=== PATIENT | male | born 1985 | race Caucasian/White ===

== ENCOUNTER 2016-08-23 01:04 | Emergency (ER) | payer OTHER ==
--- NOTE | ~2016-08-23 | EKG ---
PATIENT: MAICO SALDIVAR UNIT #: [id number] Ventricular Rate: 88 BPM Atrial Rate: 88 BPM P-R Interval: 136 ms QRS Duration: 82 ms Q-T Interval: 366 ms QTC Calculation(Bezet): 442 ms P [place]: 43 degrees Calculated R [place]: 19 degrees Calculated T [place]: 81 degrees Diagnosis Line: Normal sinus rhythm Diagnosis Line: Abnormal ECG T wave abnormality, consider Diagnosis Line: anterolateral ischemia Diagnosis Line: No previous ECGs available Diagnosis Line: Confirmed by HUSAM GONZALEZ MD ([id number]) on 08/25/2016 Diagnosis Line: 10:25:01 AM INTERPRETING MD: CARLOS INGRAM
--- NOTE | ~2016-08-23 | CR72 ---
[facility] A Service of [facility] RADIOLOGY TEXT RESULTS PATIENT: MAICO SALDIVAR LOCATION: [facility] : 87 UNIT #: [id number] AGE: [address]: Dakotah Neville MD SEX: M ORDER DR: [id number] [facility] [address] [facility]. [place], [place] [address] [id number] MR#: [id number] Acc #: [id number] NAME: MAICO SALDIVAR : 1985 SEX: M STUDY DATE/TIME: 08/23/2016 02:11 UNIT: [facility] ROOM: STUDY DESCRIPTION: CR Chest Single View Portable Attending Physician: Dakotah Neville M.D. Ordering Physician: Joni Kinney M.D. Primary Care Physician: Jovi Griffin M.D. MEDICAL IMAGING REPORT This report is preliminary unless electronic signature is present EXAM Portable chest 08/23 021 INDICATIONS Chest pain, shortness of air that started tonight. FINDINGS AP portable chest is compared with 02/22/2013. Lung volumes are low but the lungs are clear. The patient is status post sternotomy. Cardiac and mediastinal contours are normal. No pneumothorax. IMPRESSION Low-volume inspiration with CABG change. No acute findings in the chest. Dictated by... Medardo Patrick Jr., M.D. THIS IS AN ELECTRONICALLY VERIFIED REPORT Medardo Patrick Jr., M.D. at 08/24/2016 5:52 AM MADDIE/johnie TD: 08/23/2016 07:05 JOB #: [id number] MEDICAL IMAGING REPORT Page 1 of 1 COPY
[~2016-08-23 01:04] MED LIST: BP MED; CLEOCIN HCL150 MG PO; DICLOFENAC PO; FLEXERIL PO; FLEXERIL10 M1 PO; FLEXERIL10 MG PO; HYDROCODON-ACE1 EAC7 PO; IBUPROFEN PO; IBUPROFEN800 MG PO; KEFLEX PO; KEFLEX500 M2 PO; KEFLEX500 MG PO; KETOPROFEN PO; LIPITOR PO; MEDROL PO; METFORMIN PO; METOPROLOL TART25 MG PO; MOBIC PO; NO MEDICATIONS; NORCO 10-325 TA1 TAB PO; NORVASC PO; ORUDIS75 M1 DOB; ORUDIS75 M1 PO; TOPROL XL 50 MG50 MG PO; TRIAMCINOLONE AC1 GM EXT; ULTRAM PO; VICODIN 5/500 T1 TAB PO; VISCOUS XYLOCAINE; VOLTAREN50 MG PO; ZOFRAN ODT4 MG SL; ZOLOFT
[2016-08-23] MEDS ORDERED: HYDROXYZINE HCL25 M1 PO (01:26)
[2016-08-23] MEDS ORDERED: COLCHICINE0.6 M1 PO (01:26)
[2016-08-23] MEDS ORDERED: LIPITOR40 MG PO (01:27)
[2016-08-23] MEDS ORDERED: PROTONIX PO (01:27)
[2016-08-23] MEDS ORDERED: CLOPIDOGREL75 MG PO (01:27)
[2016-08-23] MEDS ORDERED: BUPROPION XL150 MG PO (01:27)
[2016-08-23] MEDS ORDERED: ASPIRIN81 M2 PO (01:27)
[2016-08-23] MEDS ORDERED: CARVEDILOL3.125 MG PO (01:28)
[2016-08-23] MEDS ORDERED: METFORMIN HCL500 M1 PO (01:28)
[2016-08-23 02:18] LABS: POC - CKMB <1.0 ng/mL (0.0-7.9); POC - TROPONIN <0.05 ng/mL (<=0.05)
[2016-08-23 02:37] LABS: BASOPHIL% 0.4 % (0-2.5); EOSINOPHIL# 0.1 X10e3 (0-0.7); HEMATOCRIT 38.3 % (38.0-50.0); HEMOGLOBIN 13.7 gm/dL (13.0-16.0); LYMPHOCYTE# 2.3 X10e3 (1.0-3.5); LYMPHOCYTE% 30.4 % (17.0-45.0); MEAN CELL VOLUME 84.7 FL (83-96); MEAN CORPUSCULAR HEMOGLOBIN 30.4 PG (28-34); MEAN CORPUSCULAR HGB CONC 35.9 g/dL (30-36); MONOCYTE# 0.6 X10e3 (0-1.0); MONOCYTE% 7.7 % (3.0-12.0); NEUTROPHIL# 4.4 X10e3 (1.5-7.1); NEUTROPHIL% 59.5 % (40-75); PLATELET COUNT 208 X10e3 (140-420); RED BLOOD COUNT 4.52 X10e (3.90-5.60); WHITE BLOOD COUNT 7.4 X10e3 (4.0-10.5)
[2016-08-23 02:44] LABS: DIFF IND NO
[2016-08-23 02:49] LABS: PARTIAL THROMBOPLASTIN TIME 24.8 SECONDS (23.5-31.3); PROTHROMBIN TIME (PATIENT) 10.1 SECONDS (9.6-11.5)
[2016-08-23 03:10] LABS: ALBUMIN SERUM 3.9 g/dL (3.5-5.0); BILIRUBIN,TOTAL 0.6 mg/dL (0.2-2.0); BUN/CREATININE RATIO 17.5; CALCIUM SERUM 9.1 mg/dL (8.4-10.2); CREATININE SERUM 0.8 mg/dL (0.6-1.4); GLOM FILT RATE Estimated 120.8 mL/min (>60); POTASSIUM 3.6 mmol/L (3.5-5.1); PROTEIN TOTAL SERUM 6.8 g/dL (6.0-8.3)
[2016-08-23 03:11] LABS: BILIRUBIN,INDIRECT 0.6 mg/dL (0.0-0.9)
[2016-08-23 03:45] LABS: POC - CKMB <1.0 ng/mL (0.0-7.9); POC - TROPONIN <0.05 ng/mL (<=0.05)
[2016-08-23 06:04] LABS: POC - CKMB <1.0 ng/mL (0.0-7.9); POC - TROPONIN <0.05 ng/mL (<=0.05)
== END 2016-08-23 06:25 | disposition home or self-care (01) ==
LOC: CED 01:04
PROVIDERS: Emergency Medicine
DX: R07.9 Chest pain, unspecified (principal); E11.9 Type 2 diabetes mellitus without complications; I10 Essential (primary) hypertension; I25.10 Atherosclerotic heart disease of native coronary artery without angina pectoris; I25.2 Old myocardial infarction; F17.200 Nicotine dependence, unspecified, uncomplicated; Z79.82 Long term (current) use of aspirin; Z79.899 Other long term (current) drug therapy
CPT/HCPCS: 71010; 80048; 80076; 82553; 84484; 85025; 85610; 85730; 93005; 96374; 96376; 99284; J2270

== ENCOUNTER 2016-08-24 02:18 | Observation (INO) | payer OTHER ==
--- NOTE | ~2016-08-24 | ST ---
Unit #: [id number] #: [id number] Patient: MAICO SALDIVAR [id number] [address] [id number] I MR#: [id number] NAME: MAICO SALDIVAR : 1985 SEX: M STUDY DATE/TIME: 08/24/2016 UNIT: C5B ROOM: 562 STUDY DESCRIPTION: Attending Physician: Philip Schuster M.D. Primary Care Physician: Jovi Griffin M.D. CARDIOLOGY REPORT EXAM Stress ECG Results included in Stress Nuclear and ECG combined report. Dictated by... Forrest Carrillo/mavis TD: 08/24/2016 19:53 JOB #: [id number] CARDIOLOGY REPORT Page 1 of 1 X Philip Schuster MD CARDIOLOGY REPORT
--- NOTE | ~2016-08-24 | EKG ---
PATIENT: MAICO SALDIVAR UNIT #: [id number] Ventricular Rate: 85 BPM Atrial Rate: 85 BPM P-R Interval: 146 ms QRS Duration: 84 ms Q-T Interval: 374 ms QTC Calculation(Bezet): 445 ms P [place]: 40 degrees Calculated R [place]: 22 degrees Calculated T [place]: 80 degrees Diagnosis Line: Normal sinus rhythm Diagnosis Line: Nonspecific T wave abnormality Diagnosis Line: Otherwise normal ECG Diagnosis Line: When compared with ECG of 23-AUG-2016 01:11, Diagnosis Line: (unconfirmed) Diagnosis Line: Criteria for Inferior infarct are no longer Diagnosis Line: Present Diagnosis Line: Confirmed by HUSAM GONZALEZ MD ([id number]) on 08/25/2016 Diagnosis Line: 10:35:08 AM INTERPRETING MD: CARLOS INGRAM
--- NOTE | ~2016-08-24 | HP ---
Unit #: [id number] #: [id number] Patient: MAICO MCCARTY [id number] [facility]. [place], [place] [address] [id number] I MR#: [id number] NAME: MAICO MCCARTY. ROOM: 90644 Age: 31 Sex: M Admission Date: 08/24/2016 : 1985 Attending Physician: Philip Schuster M.D. Primary Care Physician: Jovi Griffin M.D. HISTORY AND PHYSICAL CHIEF COMPLAINT Chest discomfort and syncope. HISTORY OF PRESENT ILLNESS Mr. Mccarty is a 31-year-old, white male with quite an impressive past medical history. He had myocardial infarction June 04, 2016, and underwent coronary catheterization and reports that he had a 70% LAD stenosis, 100% RCA stenosis, is not sure of his other arteries, and underwent coronary artery bypass grafting x4 on June 06, 2016, at [facility] [place] [facility]. His course was complicated by a sternal wound infection that he said was Staph. Denied MRSA and took one month of Keflex. He also has history of hypertension, dyslipidemia, hypothyroidism, and type 2 diabetes since the age of 18. Then, again in June, he had recurrent chest discomfort, presented back to the hospital, reports a recurrent myocardial infarction, and received stents. He presented yesterday to [facility] with complaints of chest discomfort. Myocardial infarction was ruled out and he was sent home. He presented again today with the same complaints of chest discomfort. Patient states that ever since he has had the stents, he has been plagued with chest discomfort and has not felt well. He also reports that he has had four syncopal episodes in the last month, the last 1 being Monday night early in the a.m., which would really be Monday morning, at 2:00 a.m. He got up. He went into the kitchen to get something to drink. He was standing in the kitchen and he felt dizzy and a little lightheaded and, then, the next thing he knew his father was waking him up on the floor at 2:30 in the morning. He has had three episodes like this where he feels dizzy and lightheaded, and then he passes out. His chest discomfort has been occurring at rest, feeling a sledgehammer is hitting him. PAST MEDICAL HISTORY 1. 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 2. Hypertension. 3. Dyslipidemia. 4. Hypothyroidism without treatment. 5. Type 2 diabetes since the age of 18. PAST SURGICAL HISTORY Coronary artery bypass grafting. HOME MEDICATIONS 1. Colchicine 0.6 mg daily. Unit #: [id number] #: [id number] Patient: MAICO MCCARTY 2. Hydroxyzine 25-50 mg at bedtime. 3. Protonix 40 mg twice daily. 4. Plavix 75 mg daily. 5. Bupropion 150 mg twice daily. 6. Lipitor 40 mg daily. 7. Aspirin 81 mg daily. 8. Carvedilol 3.125 mg twice daily. 9. Metformin 500 mg daily. ALLERGIES No known allergies. SOCIAL HISTORY Quit tobacco June 04, 2016. Prior to that, positive tobacco age 20 to the age of 31 three packs were day. Quit alcohol March 2016 (1) social history of alcohol use. Positive history of marijuana use, but also quit marijuana. FAMILY HISTORY Father had his first CA at the age of 36, second CA at the age of 46, history of arteriosclerotic heart disease and stents, hypertension, as well as cholesterol. Reports that his mother is healthy. REVIEW OF SYSTEMS No glaucoma. No cataracts. No eye pain. No difficulty hearing. No ear pain. No difficulty swallowing. No productive cough. Has a dry cough. No fevers. No chills. No recurrent bronchitis, sinusitis. No constipation. No diarrhea. Reports he noticed dark bloody stool two nights ago. Positive for melena. No bright red bleeding per rectum. No dysuria. No hematuria. No gait disturbance, but he has been having problems with dizziness, lightheadedness, and syncope. No history of seizures. PHYSICAL EXAMINATION GENERAL APPEARANCE: Well developed, well nourished, white male seen in the emergency room in no acute distress. VITAL SIGNS: Temp 98.4, pulse 69, respirations 16, O2 sat 96% 2 liters, blood pressure 119/83 (max has been 156/100), 6 feet, 2 inches, 128.82 kg, and BMI 36. HEENT: Normocephalic and atraumatic. No xanthelasma. Pupils are equal, round, and reactive to light. Extraocular movements intact. NECK: No jugular venous distention. No elevated CVP. Neck is supple. LUNGS: Clear to auscultation bilaterally anteriorly and posteriorly. HEART: S1 and S2. No S3 or S4. No murmurs, rubs, or gallops. PMI nondisplaced. No lift. ABDOMEN: Obese. Positive bowel sounds. Soft and nontender. EXTREMITIES: No clubbing, cyanosis, or edema. Pulses 2+ bilaterally. SPINE: No scoliosis. SKIN: No rash. Sternal incision appears to be well healed. DIAGNOSTIC STUDIES IMAGING: CT angio of the chest, PE protocol, suboptimal bolus timing, but there is no aortic dissection. No central pulmonary embolus. Lungs are clear. Stable scarring of the left upper kidney. Chest x-ray shows low volume inspiration with CABG changes. No acute findings in the chest. Unit #: [id number] #: [id number] Patient: MAICO MCCARTY LABORATORY: Chemistry: Sodium 139, potassium 3.6, chloride 107, CO2 25, BUN 12, creatinine 0.8, glucose 144, total protein 6.4, albumin 3.8, AST 16, ALT 24, and alk phos 50. Coagulation: PT 10, INR 1, and PTT 24. Point of care troponin testing from August 24 up through August 23: Less than 0.05 x5. Hemoglobin 13.4, hematocrit 38.4, white blood cell count 8.8, and platelet count 223. ASSESSMENT AND PLAN 1. Recurrent chest discomfort with history of arteriosclerotic heart disease and myocardial infarction x2 and coronary artery bypass grafting. He has had a 12-lead EKG, which shows no acute ST elevation, no acute ST depression, normal sinus rhythm with a ventricular rate of 88, and there are inferior Q waves. Troponin is negative x4. We will do a 2D echocardiogram and a stress test. He may ultimately require a repeat catheterization. We will obtain old records from Dr. Root' office as well as [facility] [place] [facility]. 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 He does not want to return to Dr. Root. 2. Four reported syncopal episodes. Differential diagnosis: Arrhythmia, orthostasis. We will obtain orthostatic blood pressures every shift, 24-hour Holter monitor, home with an event monitor, and could possibly require loop recorder. 3. Reported hypothyroidism. We will check a TSH. He is currently not on any supplementation. 4. Reported melena with normal hemoglobin and hematocrit. We will do a Hemoccult stool. 5. Diabetes. Check a hemoglobin A1c. 6. Dyslipidemia. We will check his fasting lipid panel. We will stop his Plavix and change it to Brilinta. As well, we will increase his Coreg to 6.25 twice daily. Any further recommendations per Dr. Schuster. Dictated by Nasima Huffman A.P.R.N. for Philip Schuster M.D. SABI/chantal TD: 08/24/2016 12:08 JOB #: [id number] HISTORY AND PHYSICAL Page 1 of 1 X X HISTORY AND PHYSICAL
--- NOTE | ~2016-08-24 | TH ---
Unit #: [id number] #: [id number] Patient: MAICO SALDIVAR [id number] [facility]. [place], [place] [address] [id number] I MR#: [id number] NAME: MAICO SALDIVAR. : 1985 SEX: M STUDY DATE/TIME: 08/24/2016 UNIT: C5B ROOM: 562 STUDY DESCRIPTION: Attending Physician: Philip Schuster M.D. Primary Care Physician: Jovi Griffin M.D. CARDIOLOGY REPORT EXAM Stress Nuclear and ECG combined. INDICATION Coronary artery disease, chest pain, syncope. SUMMARY Patient exercised on a Dmitri protocol to maximal effort. Patient completed 5 minutes 28 seconds of exercise. The heart rate increased from 78 to 166 (96%) and blood pressure increased from 112/73 to 190/70. Patient did not note any chest pain. The rest and stress ECG demonstrated no diagnostic ST shifts. The patient did feel lightheaded when the heart rate increased to 146. Chest pain like a sledgehammer 8 out of 10 developed at 4 minutes 59 seconds of exercise, heart rate 160. During both sets of symptoms, there were no ST changes. In recovery, at approximately 33 seconds after completion of exercise, the patient again noted chest pain 8 out of 10 like a sledgehammer. ECG showed no diagnostic ST shifts. The only change was a biphasic T wave in leads III and AVF and pseudonormalization of the T wave in AVL. There were no significant dysrhythmias. At approximately 3 minutes post exercise, the T waves returned to normal in the inferior leads and in AVL. Technetium 99 Cardiolite 11.35 and 31.2 mCi was injected at rest and stress, respectively. Appropriate views were obtained. FINDINGS The study is adequate. There is no significant patient motion noted during acquisition of the rest or stress images. There is borderline LV enlargement and RV enlargement. No increased lung uptake is noted. Summed stress score is 5 and summed difference score is 2. Changes involve primarily the inferior wall and border detection at the base at the anteroseptal wall. Gated perfusion wall motion analysis demonstrates mild to moderate hypokinesis of the inferolateral wall, but otherwise normal wall motion. End-diastolic volume is 106 mL, and ejection fraction is 47%. Perfusion images demonstrate mild decrease in perfusion in the inferior wall at rest and perhaps slightly more decreased perfusion with stress at the basal inferior wall only. Otherwise, perfusion is normal and equivalent between rest and stress with tissue artifact noted in the anterolateral wall. IMPRESSION Unit #: [id number] #: [id number] Patient: MAICO SALDIVAR 1. Severe deconditioning based on the patient's age. 2. Severe hypertensive blood pressure response to stress. 3. Normal heart rate response to stress. 4. Abnormal nondiagnostic stress ECG but very suggestive of ischemia, small vessel. T wave changes are noted above in the inferior leads and AVL. Would consider this an ischemic response although definitely not "classic." 5. Very minimal inferior wall ischemia, mild in degree, mild in extent. 6. Reduced left ventricular function related to inferolateral hypokinesis. 7. Upper normal left ventricle size. 8. Because of the distribution of the abnormality, medical therapy is recommended. This is the area of the very small posterior descending artery to which there is an open vein bypass graft as noted on his last cardiac catheterization. The T wave changes likely represent small vessel ischemia in this area. 9. Recommend continued medical therapy. No clear explanation regarding syncope from this study. 1. Dictated by... Forrest Carrillo/mavis TD: 08/24/2016 19:12 JOB #: [id number] CARDIOLOGY REPORT Page 1 of 1 X Philip Schuster MD CARDIOLOGY REPORT
--- NOTE | ~2016-08-24 | OR ---
Unit #: [id number] #: [id number] Patient: MAICO SALDIVAR [id number] [address] [id number] I MR#: [id number] NAME: MAICO SALDIVAR ROOM: 562 Date of Procedure: 08/25/2016 Admission Date: 08/24/2016 Surgeon: Ramiro Whipple M.D. : 1985 Attending Physician: Philip Schuster M.D. Primary Care Physician: Jovi Griffin M.D. PROCEDURE OPERATIVE NOTE PROCEDURE PERFORMED EGD with biopsy. INDICATION Patient with atypical chest pain. Cardiac workup negative. Undergoing evaluation with an upper endoscopy. MEDICATIONS Monitored anesthesia. POSTOP FINDINGS 1. Normal esophagus. 2. Food bezoar in stomach, suggests gastroparesis. 3. Patches of inflammation in the antral area. Biopsies taken. 4. Normal duodenal bulb and descending duodenum. PLAN Ultrasound right upper quadrant for further evaluation. DESCRIPTION OF PROCEDURE The patient was explained the procedure risks and benefits, was brought to the endoscopy room. Propofol anesthesia was given. Bite block was placed. Scope was passed down the mouth into the esophagus, stomach, duodenal bulb and descending duodenum. Findings as described. Biopsies taken. Gently the scope was pulled out. He tolerated it well. Dictated by... Forrest Birmingham/juma TD: 08/25/2016 10:27 JOB #: [id number] Unit #: [id number] #: [id number] Patient: MAICO SALDIVAR PROCEDURE OPERATIVE NOTE Page 1 of 1 X Ramiro Whipple MD PROCEDURE OPERATIVE NOTE
--- NOTE | ~2016-08-24 | CO ---
Unit #: [id number] #: [id number] Patient: MAICO SALDIVAR [id number] [address] [id number] I MR#: [id number] NAME: MAICO SALDIVAR. ROOM: 562 Age: 31 Sex: M Admission Date: 08/24/2016 : 1985 Attending Physician: Philip Schuster M.D. Primary Care Physician: Jovi Griffin M.D. Consultation Date: 08/24/2016 CONSULTATION REPORT REASON FOR CONSULTATION Atypical chest pain. HISTORY OF PRESENT ILLNESS This 31-year-old gentleman was admitted with chest pain which is mostly in the sternal area radiating to the left arm. It has no relation to activity, no relation to food. No nausea, vomiting or dysphagia. No heartburn. No abdominal pain. No bowel symptoms. He does have black stools off and on several times every few days. No previous history of GI disease. Never had any endoscopies. PAST MEDICAL HISTORY Significant for: 1. Coronary artery disease, status post bypass surgery. 2. History of hypertension. 3. Hyperlipidemia. 4. Hypothyroidism. HOME MEDICATIONS Include: 1. Aspirin. 2. Wellbutrin. 3. Plavix. 4. Metformin. 5. Metoprolol. ALLERGIES None. SOCIAL HISTORY Smoker, denies alcohol or drug abuse. REVIEW OF SYSTEMS A complete 10-point review of systems was done which is unremarkable other than as mentioned above. PHYSICAL EXAMINATION VITAL SIGNS: Stable. Temperature 98.4, pulse 91, respirations 20, blood pressure 124/62. HEENT: Pupils equal and reactive. Sclerae anicteric. Oral mucosa moist. NECK: No JVD. No lymphadenopathy. LUNGS: Clear to auscultation bilaterally. HEART: Regular rate and rhythm, no murmurs. ABDOMEN: Soft, nontender, nondistended. Unit #: [id number] #: [id number] Patient: MAICO SALDIVAR EXTREMITIES: Without clubbing, cyanosis, or edema. NEUROLOGIC: Grossly intact. SKIN: Warm and dry. DIAGNOSTIC STUDIES LABORATORY: Hemoglobin normal. Chemistries unremarkable. ASSESSMENT AND PLAN Patient with significant cardiac history in the past. Dr. Schuster has been seeing the patient. He does not think this current pain is related to cardiac and his recent cardiac stress test was negative. As the pain is atypical, we will get an ultrasound right upper quadrant to rule out gallbladder disease. Will also plan on doing an upper endoscopy looking for peptic ulcer disease as well as complicated GERD. I will give him a trial of PPIs also. Thank you, Dr. Schuster, for this interesting consult. Will follow along. Dictated by... Forrest Birmingham/anibal TD: 08/24/2016 22:40 JOB #: [id number] CONSULTATION REPORT Page 1 of 1 X Ramiro Whipple MD X CONSULTATION REPORT
--- NOTE | ~2016-08-24 | US67 ---
[facility] A Service of [facility] RADIOLOGY TEXT RESULTS PATIENT: MAICO SALDIVAR LOCATION: [facility] 56 : 87 UNIT #: [id number] AGE: [address]: Philip Schuster MD SEX: M ORDER DR: [id number] [facility]. [place], [place] [address] [id number] I MR#: [id number] #: [id number] NAME: MAICO SALDIVAR : 1985 SEX: M STUDY DATE/TIME: 08/25/2016 7:51 UNIT: [facility] ROOM: 2 STUDY DESCRIPTION: US Gallbladder Attending Physician: Philip Schuster M.D. Ordering Physician: Ramiro Whipple M.D. Primary Care Physician: Jovi Griffin M.D. MEDICAL IMAGING REPORT This report is preliminary unless electronic signature is present EXAM Ultrasound abdomen, limited, 08/25/2016 HISTORY 31-year-old male complaining of 2-day history of right upper quadrant abdomen pain. TECHNIQUE Walden-scale ultrasound imaging of the right upper quadrant of the abdomen. COMPARISON Abdomen images from CT chest yesterday. FINDINGS The examination is somewhat limited by patient body habitus. The gallbladder is negative. No visible cholelithiasis, gallbladder distension or definite gallbladder wall thickening. No intrahepatic or extrahepatic bile duct dilatation (CBD 2 mm). Diffusely echodense hepatic parenchyma suggests hepatic steatosis. No mass or other focal liver lesion is identified. Pancreas is completely obscured by overlying bowel gas but is negative where seen on CT yesterday. Right kidney is negative with no hydronephrosis. IMPRESSION 1. Technical limitations as noted. 2. Negative gallbladder. No cholelithiasis or bile duct dilatation. 3. Diffuse hepatic steatosis. Dictated by... Edis Lundberg M.D. [facility] A Service of [facility] RADIOLOGY TEXT RESULTS PATIENT: MAICO SALDIVAR LOCATION: [facility] [id number] : [birth year] UNIT #: [id number] AGE: [address]: Philip Schuster MD SEX: M ORDER DR: THIS IS AN ELECTRONICALLY VERIFIED REPORT Edis Lundberg M.D. at 08/25/2016 11:14 AM PEREZ/toni TD: 08/25/2016 08:46 JOB #: [id number] MEDICAL IMAGING REPORT Page 1 of 1 COPY
--- NOTE | ~2016-08-24 | A ---
[facility] Nutrition Therapy DATE: 08/25/16 Patient: MAICO SALDIVAR Physician: SHARIF Address: [facility] BALDO REDDY Room/Bed: [address] [place] [address], Zip: [place] [address] Admit Date: 08/24/16 Date of : [birth year] Height: 6 2 Weight: 310 141 NUTRITIONAL ASSESSMENT: REASON: PT SEEN FOR CONSULT PT IS 31 Y.O. MALE ADMITTED FOR CHEST PAIN, SYNCOPE PMH: CAD, HTN, HLD, CABG, HYPOTHYROIDISM, CA, T2DM Anthropometrics: 6'2", WT: 283# (PER PT) (129 KG), BMI: 36.3 -WEIGHTS HAVE RANGED 283-315# SINCE ADMIT Labs: GLU: 167, TGs: 616 Meds: PROTONIX, FISH OIL, LIPITOR I/O & Bowel function: 310/700 Skin Integrity: NO KNOWN SKIN ISSUES; TATTOOS NOTED Assessment: CHART REVIEWED AND EVENTS NOTED. PT SEEN FOR CONSULT. PT REPORTS SOME ABD PAIN AT TIME OF VISIT. PT IS S/P EGD REVEALING GASTRITIS, ALSO FOOD BEZOAR NOTED IN STOMACH. OF NOTE, PT ON HH + GASTROPARESIS DIET HERE IN-HOUSE. RD PROVIDED WRITTEN AND VERBAL CC+HH+ GASTROPARESIS DIET EDUCATION. PT REPORTS EATING A TURKEY SANDWICH ONLY DAILY LAST FEW MONTHS SINCE CABG IN MAY 2016. RD ENCOURAGED SMALL FREQUENT MEALS + PROVIDED LIST OF ALTERNATIVES. PT DEMONSTRATED UNDERSTANDING OF THE TOPIC. PT REPORTED NO DIET QUESTIONS AT THIS TIME. RD TO REMAIN AVAILABLE. Dx: OBESITY CLASS II R/T LIFESTYLE, DIET, PMH AEB BMI OF 36.3. -FOOD AND NUTRITION-RELATED KNOWLEDGE DEFICIT R/T LACK OF KNOWLEDGE AEB PT REPORT ABOVE. Intervention: 1. HH + GASTROPARESIS DIET 2. RD DIET EDUCATION Monitoring, Evaluation and Goals: 1. ORAL INTAKE; CONSUME >50% OF MEALS 2. WEIGHTS; PROMOTE GRADUAL WEIGHT LOSS 3. EDUCATION; DEVELOP UNDERSTANDING OF CURRENT DIET ORDER MONITOR: -PO INTAKE -EDUCATION NEEDS [facility] Nutrition Therapy DATE: 08/25/16 Patient: MAICO SALDIVAR Physician: SHARIF Address: [address] Room/Bed: [address] [place] [address], Zip: [place] [address] Admit Date: 08/24/16 Date of : [birth year] Height: 6 2 Weight: 310 141 Recommendations: 1. RECOMMEND TO ADD CONSISTENT CARBOHYDRATE TO CURRENT DIET ORDER ABOVE 2' PMH OF T2DM, HIGH BMI 2. ENCOURAGE COMPLIANCE OF CURRENT DIET ORDER RD WILL F/U PER PROTOCOL PT IS MILDLY COMPROMISED Respectfully, DIMAS HERNÁNDEZ MS, RD, LD [employer] [facility] [employer] cc: client file
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
--- NOTE | ~2016-08-24 | CR150 ---
[facility] A Service of [facility] & [facility] RADIOLOGY TEXT RESULTS PATIENT: MAICO SALDIVAR LOCATION: [facility] 562-01 : 87 UNIT #: [id number] AGE: [address]: Philip Schuster MD SEX: M ORDER DR: [id number] [facility] [address]. [place], [place] [address] [id number] I MR#: [id number] Acc #: [id number] NAME: MAICO SALDIVAR : 1985 SEX: M STUDY DATE/TIME: 08/25/2016 15:01 UNIT: [facility] ROOM: [facility] STUDY DESCRIPTION: CR Hip Min 2 Views Lt Attending Physician: Philip Schuster M.D. Ordering Physician: Philip Schuster M.D. Primary Care Physician: Jovi Griffin M.D. MEDICAL IMAGING REPORT This report is preliminary unless electronic signature is present EXAM Bilateral hip series 08/25/2016. HISTORY 31-year-old male complaining of bilateral hip pain after a fall earlier today. Pain is greater on the right. TECHNIQUE AP radiograph of the pelvis and hips was obtained along with right and left lateral hip images. TECHNIQUE No fracture, dislocation, arthropathy or other osseous abnormality is demonstrated. IMPRESSION Negative bilateral hip series. Dictated by... Edis Lundberg M.D. THIS IS AN ELECTRONICALLY VERIFIED REPORT Edis Lundberg M.D. at 08/25/2016 4:29 PM PEREZ/lily TD: 08/25/2016 16:27 JOB #: [id number] MEDICAL IMAGING REPORT Page 1 of 1 COPY
--- NOTE | ~2016-08-24 | CT16 ---
[facility] A Service of [facility] & [facility] RADIOLOGY TEXT RESULTS PATIENT: MAICO SALDIVAR LOCATION: [facility] 562-01 : 87 UNIT #: [id number] AGE: [address]: Philip Schuster MD SEX: M ORDER DR: [id number] [facility] [address] [place], [place] [address] [id number] MR#: [id number] Acc #: [id number] NAME: MAICO SALDIVAR. : 1985 SEX: M STUDY DATE/TIME: 08/24/2016 03:45 UNIT: [facility] ROOM: STUDY DESCRIPTION: CT Angio Chest for PE Attending Physician: Joni Kinney M.D. Ordering Physician: Joni Kinney M.D. Primary Care Physician: Jovi Griffin M.D. MEDICAL IMAGING REPORT This report is preliminary unless electronic signature is present EXAM Chest CTA 08/24 at 03:45 INDICATIONS Left side chest pain and shortness of air that started yesterday. Finger numbness, headache and weakness. TECHNIQUE Axial images were obtained through the chest following IV contrast administration. 3-D reformats were obtained. No comparison. This CT exam was performed with one or more of the following radiation dose reduction techniques: automatic exposure control, adjustment of mA and/or kV according to patient size, and iterative reconstruction. FINDINGS The patient is status post CABG. There is no aortic dissection. Bolus timing is suboptimal. No central pulmonary embolism is seen. More peripheral pulmonary arterial branches are poorly evaluated. Consider repeat exam if renal function permits or VQ scan if needed. No pleural or pericardial effusion. No adenopathy. There is bilateral gynecomastia. The lungs are clear. Upper abdomen demonstrates an area of chronic scarring in the left kidney, also seen on the CT abdomen from 02/21/2016. IMPRESSION 1. Suboptimal bolus timing. There is no aortic dissection. There is no central pulmonary embolism. More peripheral pulmonary arterial branches are poorly evaluated. If this remains of concern clinically, I would recommend a repeat exam if renal function permits or a VQ scan. 2. Status post CABG. 3. The lungs are clear. 4. Stable scarring in the left upper kidney. [facility] A Service of [facility] & [facility] RADIOLOGY TEXT RESULTS PATIENT: MAICO SALDIVAR LOCATION: [facility] 562-01 : 87 UNIT #: [id number] AGE: [address]: Philip Schuster MD SEX: M ORDER DR: Dictated by... Medardo Patrick Jr., M.D. THIS IS AN ELECTRONICALLY VERIFIED REPORT Medardo Patrick Jr., M.D. at 08/25/2016 6:00 AM MADDIE/johnie TD: 08/24/2016 06:16 JOB #: [id number] MEDICAL IMAGING REPORT Page 1 of 1 COPY
--- NOTE | ~2016-08-24 | HM ---
Unit #: [id number] #: [id number] Patient: MAICO SALDIVAR [id number] [address] [address] [id number] I MR#: [id number] NAME: MAICO SALDIVAR. : 1985 SEX: M STUDY DATE/TIME: 08/24/2016 UNIT: [facility] ROOM: 562 STUDY DESCRIPTION: Attending Physician: Philip Schuster M.D. Primary Care Physician: Jovi Griffin M.D. CARDIOLOGY REPORT EXAM 24-hour Holter monitor. DATE APPLIED 08/24/2016 DATE SCANNED 08/31/[address] Philip Schuster ORDERED BY Dr. Philip Schuster REASON FOR STUDY Chest pain. SUMMARY The patient was monitored for 24 hours. A total of 100,625 QRS complexes were analyzed. There were less than 1% ventricular and supraventricular ectopic beats. The rhythm was sinus. The average heart rate was 70 beats per minute. Minimum heart rate 53 beats per minute occurred at 5:56 a.m. Maximum heart rate 108 beats per minute occurred at approximately 4:40 p.m. There were no pauses. Supraventricular ectopy: One isolated beat. Ventricular ectopy: Two isolated beats. No ventricular or supraventricular ectopic runs. Symptoms: None. Patient activated events: None. IMPRESSION 1. Holter monitor shows no significant ventricular or supraventricular ectopy. 2. Normal Holter. Unit #: [id number] #: [id number] Patient: MAICO SALDIVAR Dictated by... Forrest Carrillo/radha TD: 08/31/2016 09:15 JOB #: [id number] CARDIOLOGY REPORT Page 1 of 1 X Philip Schuster MD HOLTER MONITOR REPORT
--- NOTE | ~2016-08-24 | DS ---
Unit #: [id number] #: [id number] Patient: MAICO MCCARTY [id number] [address] [address] [id number] I MR#: [id number] NAME: MAICO MCCARTY ROOM: 562 Age: 31 Sex: M Admission Date: 08/24/2016 : 1985 Discharge Date: 08/26/2016 Attending Physician: Philip Schuster M.D. Primary Care Physician: Jovi Griffin M.D. DISCHARGE SUMMARY ADMISSION DIAGNOSES 1. Chest discomfort. 2. History of arteriosclerotic heart disease with coronary artery bypass grafting and stenting. 3. Dyslipidemia. 4. Hypertriglyceridemia. 5. Diabetes mellitus. 6. Syncope. DISCHARGE DIAGNOSES 1. Chest discomfort. 2. History of arteriosclerotic heart disease with coronary artery bypass grafting and stenting. 3. Dyslipidemia. 4. Hypertriglyceridemia. 5. Diabetes mellitus. 6. Gastroparesis. 7. Syncope. Mr. 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 He returned again with complaints of chest discomfort. He had undergone nuclear stress as well, 08/08, he underwent a Lexiscan Cardiolite on 08/08/2016, which showed maximal Lexiscan stress test EKG changes suggestive of ischemia, no symptoms of chest pain during stress testing myocardial infusion, showed abnormal myocardial perfusion study evidence of a small inferior wall myocardial infarction, no definitive deepali of stress-induced ischemia, post stress ejection fraction was 59% with normal wall motion and wall thickening. Echocardiogram done on 08/08, all of this was at [facility]. At that time ejection fraction was 55%, global left ventricular wall motion and contractility were within normal limits, mild TR, mild concentric left ventricular hypertrophy. The patient underwent Cardiolite treadmill stress testing at this facility. There was some mild ischemia in the distribution of the right coronary artery. 2D echocardiogram showed an ejection fraction of 45% to 50%, normal diastolic filling E to E was 13, the patient underwent changes to his medications. He also had a lipid panel obtained which showed a cholesterol of 155, triglycerides of 616, LDL was un-calculable, HDL was 23, TSH was 3.47, free T4 was 0.57 and free T3 was 2.7. The patient will Unit #: [id number] #: [id number] Patient: MAICO MCCARTY received an event monitor for syncopal episodes. The patient continued to complain of pain. He underwent EGD which showed gastroparesis with food residual, and some antral gastritis, it was recommended that he continue PPR and gastroparesis diet. The patient fell out of the bed trying to move his bedside tray and complained of hip pain, had hip x-rays done which were negative. Pain management for continued pain, he prescribed Toradol, the patient refused. Opiates were all discontinued during this hospitalization. DISCHARGE MEDICATIONS Are as follows: 1. Bupropion 150 mg b.i.d. 2. Metformin 500 mg daily 3. Hydroxyzine 25-50 mg at bedtime 4. Coreg was increased to 6.25 mg 5. Lipitor 40 mg 6. Altace was started at 5 mg daily 7. [place] fatty acids were started 2000 mg twice daily 8. Patient will continue colchicine 0.6 mg daily 9. Aspirin 81 mg daily 10. Patient will receive Ranexa 500 mg twice daily 11. Plavix was changed to Brilinta 90 mg twice daily 12. Protonix 40 mg twice daily FOLLOWUP The patient will follow up with Dr. Schuster in two weeks, office was notified of event monitor. No arrhythmias were noted during this hospitalization. The patient did not have orthostasis. Gallbladder of the ultrasound was negative. Of note, his serum toxicology was positive for benzodiazepines and positive for opiates. Will also arrange for outpatient sleep study with Dr. Monahan. Dictated by... Angel Henderson/faustino TD: 08/28/2016 14:03 JOB #: [id number] DISCHARGE SUMMARY Page 1 of 1 X X DISCHARGE SUMMARY
[~2016-08-24 02:18] MED LIST changes: +ASPIRIN81 M2 PO; +BUPROPION XL150 MG PO; +CARVEDILOL3.125 MG PO; +CLOPIDOGREL75 MG PO; +COLCHICINE0.6 M1 PO; +HYDROXYZINE HCL25 M1 PO; +LIPITOR40 MG PO; +METFORMIN HCL500 M1 PO; +PROTONIX PO
[2016-08-24 02:52] LABS: BASOPHIL% 0.3 % (0-2.5); EOSINOPHIL# 0.2 X10e3 (0-0.7); EOSINOPHIL% 2.1 % (0.0-7.0); HEMATOCRIT 38.4 % (38.0-50.0); HEMOGLOBIN 13.4 gm/dL (13.0-16.0); LYMPHOCYTE# 2.5 X10e3 (1.0-3.5); LYMPHOCYTE% 28.4 % (17.0-45.0); MEAN CELL VOLUME 84.7 FL (83-96); MEAN CORPUSCULAR HEMOGLOBIN 29.6 PG (28-34); MEAN CORPUSCULAR HGB CONC 34.9 g/dL (30-36); MEAN PLATELET VOLUME 7.7 FL (6.5-11.5); MONOCYTE# 0.5 X10e3 (0-1.0); NEUTROPHIL# 5.6 X10e3 (1.5-7.1); NEUTROPHIL% 63.2 % (40-75); PLATELET COUNT 223 X10e3 (140-420); RED BLOOD COUNT 4.54 X10e (3.90-5.60); RED CELL DISTRIBUTION WIDTH 13.4 % (11.0-15.5); WHITE BLOOD COUNT 8.8 X10e3 (4.0-10.5)
[2016-08-24 02:53] LABS: DIFF IND NO
[2016-08-24 02:55] LABS: POC - CKMB <1.0 ng/mL (0.0-7.9); POC - TROPONIN <0.05 ng/mL (<=0.05)
[2016-08-24 03:18] LABS: ALBUMIN SERUM 3.8 g/dL (3.5-5.0); BILIRUBIN,TOTAL 0.5 mg/dL (0.2-2.0); CREATININE SERUM 0.8 mg/dL (0.6-1.4); GLOM FILT RATE Estimated 120.8 mL/min (>60); POTASSIUM 3.6 mmol/L (3.5-5.1); PROTEIN TOTAL SERUM 6.4 g/dL (6.0-8.3)
[2016-08-24 04:49] LABS: POC - CKMB <1.0 ng/mL (0.0-7.9); POC - TROPONIN <0.05 ng/mL (<=0.05)
[2016-08-24 11:46] LABS: CHOLESTEROL 155 mg/dL (0-200); HDL CHOLESTEROL 23 mg/dL (29-75)
[2016-08-24 11:47] LABS: TRIGLYCERIDES 616 mg/dL (10-160)
[2016-08-25 05:29] LABS: HEMATOCRIT 40.9 % (38.0-50.0); HEMOGLOBIN 13.7 gm/dL (13.0-16.0); MEAN CELL VOLUME 85.6 FL (83-96); MEAN CORPUSCULAR HEMOGLOBIN 28.8 PG (28-34); MEAN CORPUSCULAR HGB CONC 33.6 g/dL (30-36); MEAN PLATELET VOLUME 7.7 FL (6.5-11.5); RED BLOOD COUNT 4.78 X10e (3.90-5.60); RED CELL DISTRIBUTION WIDTH 13.7 % (11.0-15.5); WHITE BLOOD COUNT 8.6 X10e3 (4.0-10.5)
[2016-08-25 06:57] LABS: ALBUMIN SERUM 3.9 g/dL (3.5-5.0); BILIRUBIN,TOTAL 0.4 mg/dL (0.2-2.0); BUN/CREATININE RATIO 14.44; CREATININE SERUM 0.9 mg/dL (0.6-1.4); POTASSIUM 4.2 mmol/L (3.5-5.1); PROTEIN TOTAL SERUM 6.6 g/dL (6.0-8.3)
[2016-08-25 13:11] LABS: FREE T3 2.7 pg/mL (2.5-3.9)
[2016-08-25 13:13] LABS: FREE THYROXIN (T4) 0.57 ng/dL (0.58-1.64)
[2016-08-25 17:19] LABS: AMPHETAMINE NEG (NEG); BARBITURATES NEG (NEG); BENZODIAZEPINES POS (NEG); COCAINE NEG (NEG); MARIJUANA NEG (NEG); OPIATES POS (NEG); TRICYCLIC ANTIDEPRESSANTS NEG (NEG); U METHADONE NEG (NEG)
[2016-08-26] MEDS ORDERED: COREG6.25 MG PO ×2 (11:22→11:29)
[2016-08-26] MEDS ORDERED: OMEGA 3 1,0001 EACH PO (11:28)
[2016-08-26] MEDS ORDERED: BRILINTA90 MG PO (11:31)
[2016-08-26] MEDS ORDERED: RANEXA500 MG PO (11:31)
[2016-08-26] MEDS ORDERED: LOVAZA PO (15:49)
[2016-08-26] MEDS ORDERED: ACETAMINOPHEN PO (15:50)
== END 2016-08-26 17:12 | disposition home or self-care (01) ==
LOC: CED 02:18 → C5B 11:13 → CED 11:13 → CEDOF 11:13 → C5B 11:13
PROVIDERS: Emergency Medicine; Internal Medicine
DX: R07.89 Other chest pain (principal); I25.10 Atherosclerotic heart disease of native coronary artery without angina pectoris; Z95.1 Presence of aortocoronary bypass graft; Z95.5 Presence of coronary angioplasty implant and graft; R55 Syncope and collapse; E78.5 Hyperlipidemia, unspecified; E78.1 Pure hyperglyceridemia; E11.43 Type 2 diabetes mellitus with diabetic autonomic (poly)neuropathy; K31.84 Gastroparesis; Z79.82 Long term (current) use of aspirin; Z79.02 Long term (current) use of antithrombotics/antiplatelets; Z87.891 Personal history of nicotine dependence; Z82.49 Family history of ischemic heart disease and other diseases of the circulatory system; K92.1 Melena
CPT/HCPCS: 36415; 71275; 73502; 76705; 78452; 80053; 80061; 80307; 82553; 82947; 83036; 84439; 84443; 84481; 84484; 85025; 85027; 85610; 85730; 88305; 88312; 93005; 93017; 93225; 93226; 93306; 94760; 96374; 99285; A9500; G0378; J2250; J2270; J2785; Q9967

== ENCOUNTER 2016-08-28 21:48 | Emergency (ER) | payer OTHER ==
[~2016-08-28 21:48] MED LIST changes: +ACETAMINOPHEN PO; +BRILINTA90 MG PO; +COREG6.25 MG PO; +LOVAZA PO; +OMEGA 3 1,0001 EACH PO; +RANEXA500 MG PO
== END 2016-08-28 23:15 | disposition home or self-care (01) ==
LOC: SED 21:48
DX: R58 Hemorrhage, not elsewhere classified (principal); E11.9 Type 2 diabetes mellitus without complications; E78.5 Hyperlipidemia, unspecified; F17.200 Nicotine dependence, unspecified, uncomplicated; Z86.79 Personal history of other diseases of the circulatory system
CPT/HCPCS: 99283

== ENCOUNTER 2016-09-28 20:46 | Observation (INO) | payer OTHER ==
--- NOTE | ~2016-09-28 | HP ---
Unit #: [id number] #: [id number] Patient: MAICO SALDIVAR [id number] [address] [place], [place] [address] [id number] MR#: [id number] NAME: MAICO SALDIVAR ROOM: 570 Age: 31 Sex: M Admission Date: 09/29/2016 : 1985 Attending Physician: Kevan Sanches M.D. Primary Care Physician: Jovi Griffin M.D. HISTORY AND PHYSICAL CHIEF COMPLAINT Chest pain. HISTORY OF PRESENT ILLNESS The patient is a 31-year-old male who is known to Dr. Schuster. The patient initially had a myocardial infarction on June 04, 2016 and underwent cardiac catheterization and per reports, he had 70% LAD stenosis, 100% RCA stenosis, and 100% RCA stenosis. Ultimately, the patient underwent coronary artery bypass grafting x4 on May 17, 2016 at [facility]. His course was complicated by sternal wound infection that was staphylococcus. The patient also reports that in June 2016 he had a myocardial infarction, had two stents placed. Additional past medical history includes hypertension, hyperlipidemia, diabetes type two, gastroparesis, GERD, hypothyroidism, reformed tobacco and marijuana use, and obesity. The patient presented to the emergency department after he states that yesterday while at rest he had chest pressure that was a 4/10. He states the pain did radiate down his left arm; however, there were no other associated symptoms. He chose to ignore the pain. Then last night, the pain became more intense of pressure that radiated down his left arm and he felt clammy. He states then that his pain was an 8/10 and that he did vomit once. The patient reports that he has been compliant with all of his medications. He then presented to the emergency department for further workup. While in the ER, his troponin was found to be less than 0.05 and his EKG was unremarkable. PAST MEDICAL HISTORY 1. Myocardial infarction, May 2016, followed by CABG x4. 2. Recurrent PA in June 2016 with stent placement x2. 3. Hypertension. 4. Hyperlipidemia. 5. Hypothyroidism. 6. Diabetes type 2. 7. GERD. 8. Gastroparesis. PAST SURGICAL HISTORY Coronary artery bypass grafting. ALLERGIES No known allergies. HOME MEDICATIONS Unit #: [id number] #: [id number] Patient: MAICO SALDIVAR 1. Ranexa 500 mg p.o. b.i.d. 2. Lovaza 1 g p.o. b.i.d. 3. Tylenol 650 mg p.o. q.6 hours p.r.n. over the counter. 4. Aspirin 81 mg p.o. daily. 5. Metformin 500 mg p.o. daily. 6. Vernal 3 at 2000 mg p.o. b.i.d. 7. Coreg 6.25 mg p.o. b.i.d. 8. Brilinta 90 mg p.o. b.i.d. 9. Colchicine 0.6 mg p.o. daily. 10. Hydroxyzine 25/50 mg p.o. at bedtime p.r.n. sleep. 11. Protonix 40 mg p.o. b.i.d. 12. Bupropion XL 150 mg p.o. b.i.d. 13. Lipitor 40 mg p.o. daily. FAMILY HISTORY Patient reports that his father had his first PA at the age of 36 and second PA at the age of 46. The patient's father has had multiple stents placed, hypertension, and hypercholesterolemia. The patient reports that his grandpa had his first PA at the age of 36 and has subsequently had open heart surgery. The patient reports that his mother is healthy. SOCIAL HISTORY The patient reports that he quit smoking in May of 2016. Prior to that, the patient had been smoking since the age of 18, approximately one pack of cigarettes per day. Patient reports that he quit drinking in March of 2016 and also quit smoking marijuana. REVIEW OF SYSTEMS A 10-point review of systems has been done and is considered otherwise negative except as indicated in the HPI. PHYSICAL EXAMINATION GENERAL: Patient is awake, alert, in no acute distress. VITAL SIGNS: Temperature 97.7, heart rate 66, respirations 18, blood pressure 129/69. He is oxygenating 95%. HEENT: Head is atraumatic, normocephalic. Pupils equal, round, reactive. Extraocular movements are intact. No drainage from ears, nares. NECK: Supple. Trachea is midline. Normal carotid upstrokes. CHEST: Lungs are clear to auscultation bilaterally. No wheezes, rales, or rhonchi. CARDIOVASCULAR: S1, S2. Regular rate and rhythm. No murmurs, rubs, or gallops appreciated. ABDOMEN: Soft, nontender, nondistended. Bowel sounds are positive in all four quadrants. SKIN: Appears to be warm, dry, intact without any unusual rashes or lesions. The patient does have tattoos. He does have a mid sternal sternotomy scar and a scar on his right calf from his bypass. EXTREMITIES: No clubbing, edema, or cyanosis. NEUROLOGIC: The patient is alert and oriented x4. He is pleasant, conversant. No focal deficits. DIAGNOSTIC STUDIES LABORATORY: Glucose 196, BUN 8, creatinine 0.8, sodium 140, potassium 3.9, chloride 107, CO2 of 24, calcium 9. Point of care troponin was less than 0.05. Initial troponin is less than 0.03. Hemoglobin A1c 5.8. Cholesterol 214, triglycerides 293, LDL 127, HDL 28. White blood cells 6.9, hemoglobin 15.5, hematocrit 46.5, platelets 182,000. Unit #: [id number] #: [id number] Patient: MAICO SALDIVAR ASSESSMENT 1. Chest pain. 2. Coronary artery disease with history of coronary artery bypass grafting x4 in May 2016, followed by a myocardial infarction in June 2016 with stents x2. 3. Hypertension. 4. Hyperlipidemia. 5. Diabetes. 6. Gastroparesis. 7. Gastroesophageal reflux disease. 8. Hypothyroidism. 9. Reformed tobaccoism. 10. Marijuana use. 11. Obesity. 12. Likely obstructive sleep apnea. PLAN I have discussed this case with Dr. Schuster. Will change the Lipitor to 80 mg p.o. daily. Check a BMP, magnesium in the morning. Will trend patient's cardiac enzymes. Will check a urine drug screen and 2D echocardiogram. Will check lipid panel, TSH, and hemoglobin A1c. Will place the patient on nitroglycerin paste 1 inch q.12 hours b.i.d. Patient will be admitted for observation. The patient can have a regular diet and be up ad delon with bathroom privileges. I have informed Dr. Schuster that the patient has been requesting pain medicine and does not want Toradol because it makes him "angry." Will monitor the patient for now. Dictated by Nicole Galloway A.P.R.N. for Forrest Carrillo TD: 09/29/2016 12:55 JOB #: [id number] HISTORY AND PHYSICAL Page 1 of 1 X Nicole Galloway APRN HISTORY AND PHYSICAL
--- NOTE | ~2016-09-28 | CR157 ---
[facility] A Service of [facility] & [facility] RADIOLOGY TEXT RESULTS PATIENT: MAICO SALDIVAR LOCATION: [facility] 570-01 : 87 UNIT #: [id number] AGE: [address]: Abraham Sanches MD SEX: M ORDER DR: [id number] [facility] [address]. [place], [place] [address] [id number] I MR#: [id number] Acc #: [id number] NAME: MAICO SALDIVAR : 1985 SEX: M STUDY DATE/TIME: 09/29/2016 23:34 UNIT: [facility] ROOM: [facility] STUDY DESCRIPTION: CR Humerus Min 2 View Rt Attending Physician: Kevan Sanches M.D. Ordering Physician: Kevan Sanches M.D. Primary Care Physician: Jovi Griffin M.D. MEDICAL IMAGING REPORT This report is preliminary unless electronic signature is present EXAM Right humerus, 09/29 INDICATION Foreign body in the arm. Arm pain. Angiocath broke in arm today. FINDINGS Two views of the right humerus were obtained. No fracture or malalignment is seen. Soft tissues of the right upper arm appear normal. Small catheter fragment is noted in the proximal forearm. Please see the forearm series from today. IMPRESSION Normal humerus. Small catheter fragment in the proximal forearm as seen on the forearm films today. Dictated by... Medardo Patrick Jr., M.D. THIS IS AN ELECTRONICALLY VERIFIED REPORT Medardo Patrick Jr., M.D. at 09/30/2016 11:25 AM MADDIE/julieta TD: 09/30/2016 09:31 JOB #: [id number] MEDICAL IMAGING REPORT Page 1 of 1 COPY
--- NOTE | ~2016-09-28 | EKG ---
PATIENT: MAICO SALDIVAR UNIT #: [id number] Ventricular Rate: 57 BPM Atrial Rate: 57 BPM P-R Interval: 160 ms QRS Duration: 88 ms Q-T Interval: 412 ms QTC Calculation(Bezet): 401 ms P [place]: 33 degrees Calculated R [place]: 42 degrees Calculated T [place]: 102 degrees Diagnosis Line: Sinus bradycardia Diagnosis Line: Nonspecific T wave abnormality Diagnosis Line: Abnormal ECG Diagnosis Line: When compared with ECG of 28-SEP-2016 20:51, Diagnosis Line: Vent. rate has decreased BY 40 BPM Diagnosis Line: QT has shortened Diagnosis Line: Confirmed by YESENIA BATISTA MD ([id number]) on Diagnosis Line: 10/01/2016 2:57:14 PM INTERPRETING MD: LUIS
--- NOTE | ~2016-09-28 | CR72 ---
[facility] A Service of [facility] & [facility] RADIOLOGY TEXT RESULTS PATIENT: MAICO SALDIVAR LOCATION: [facility] [address]-02 : 87 UNIT #: [id number] AGE: [address]: Abraham Sanches MD SEX: M ORDER DR: [id number] [facility] [address]. [place], [place] [address] [id number] MR#: [id number] Acc #: [id number] NAME: MAICO SALDIVAR : 1985 SEX: M STUDY DATE/TIME: 09/28/2016 21:26 UNIT: [facility] ROOM: STUDY DESCRIPTION: CR Chest Single View Portable Ordering Physician: Ed Rashid Moura M.D. Primary Care Physician: Jovi Griffin M.D. MEDICAL IMAGING REPORT This report is preliminary unless electronic signature is present EXAM Portable chest INDICATION Chest pain, shortness or air today. PROCEDURE Frontal view chest. COMPARISON 09/05/2016 FINDINGS Stable cardiomegaly. Previous CABG. Lungs are clear. No pneumothorax. IMPRESSION No active process. Stable mild cardiomegaly. Dictated by... Adin Vance M.D. THIS IS AN ELECTRONICALLY VERIFIED REPORT Adin Vance M.D. at 09/29/2016 10:07 AM ELSIE/jonathan TD: 09/28/2016 22:14 JOB #: [id number] MEDICAL IMAGING REPORT Page 1 of 1 COPY
--- NOTE | ~2016-09-28 | CR63 ---
[facility] A Service of [facility] RADIOLOGY TEXT RESULTS PATIENT: MAICO SALDIVAR LOCATION: [facility] 570-01 : 87 UNIT #: [id number] AGE: [address]: Abraham Sanches MD SEX: M ORDER DR: [id number] [facility] [address] [place], [place] [address] [id number] MR#: [id number] Acc #: [id number] NAME: MAICO SALDIVAR : 1985 SEX: M STUDY DATE/TIME: 09/29/2016 23:34 UNIT: [facility] ROOM: [facility] STUDY DESCRIPTION: CR Chest 2 View Attending Physician: Kevan Sanches M.D. Ordering Physician: Kevan Sanches M.D. Primary Care Physician: Jovi Griffin M.D. MEDICAL IMAGING REPORT This report is preliminary unless electronic signature is present EXAM Chest x-ray, 09/29. INDICATIONS Chest pain today. History of smoking. COMPARISON 09/28/2016 FINDINGS Two views of the chest were obtained. Cardiomegaly is stable status post CABG. Lungs are clear. No pneumothorax. IMPRESSION Stable cardiomegaly. No active disease. Dictated by... Medardo Patrick Jr., M.D. THIS IS AN ELECTRONICALLY VERIFIED REPORT Medardo Patrick Jr., M.D. at 09/30/2016 11:25 AM MADDIE/chantal TD: 09/30/2016 09:29 JOB #: [id number] MEDICAL IMAGING REPORT Page 1 of 1 COPY
--- NOTE | ~2016-09-28 | DS ---
Unit #: [id number] #: [id number] Patient: MAICO SALDIVAR [id number] [address] [address] [id number] I MR#: [id number] NAME: MAICO SALDIVAR ROOM: 570 Age: 31 Sex: M Admission Date: 09/28/2016 : 1985 Discharge Date: 10/01/2016 Attending Physician: Kevan Sanches M.D. Primary Care Physician: Jovi Griffin M.D. DISCHARGE SUMMARY DISCHARGE DIAGNOSES 1. Chest pain, no evidence of myocardial infarction. 2. Coronary artery disease with myocardial infarction and coronary artery bypass grafting x4 in 05/2016 at [facility]. 3. Non ST elevation myocardial infarction on 06/2016 and had two stents subsequently placed to the proximal ramus and the other to the mid posterolateral branch of the right coronary artery, followed by coronary angiography one week later that showed patent stents in the ramus and posterior lateral branch of the right coronary artery and 4/4 patent saphenous vein grafts. 4. Morbid obesity. 5. Mildly reduced LV function with ejection fraction of 45% to 50%. 6. Mild to moderate concentric left ventricular hypertrophy. 7. Grade 2 chronic diastolic heart failure. 8. Diabetes. 9. Hypertension. 10. Hyperlipidemia. 11. Status post extraction of foreign body by vascular surgery to the right upper extremity. DISCHARGE MEDICATIONS 1. Tylenol 650 mg q.6 hours p.r.n. for pain. 2. Wellbutrin 150 mg b.i.d. 3. Zoloft 100 mg daily. 4. Metformin to start on Monday, 500 mg daily. 5. Lipitor 80 mg at bedtime. 6. Hydroxyzine 25 mg 1-2 tablets at bedtime p.r.n. for sleep. 7. Coreg 6.25 mg b.i.d. 8. Woodacre 3 fatty acid 2,000 mg b.i.d. 9. Colchicine 0.6 mg daily. 10. Aspirin 81 mg daily. 11. Ranexa 500 mg b.i.d. 12. Brilinta 90 mg b.i.d. 13. Protonix 40 mg b.i.d. 14. Imdur 30 mg daily. 15. Nitrostat p.r.n. for chest pain. 16. Lovaza 1 g b.i.d. HISTORY AND HOSPITAL COURSE The patient is a 31-year-old male who presented to the emergency room with complaints of 4 out of 10 chest pressure. He states the pain did radiate down his left arm. However, there were no other associated symptoms. He initially had ignored his pain and the next night became more intense and was 8 out of 10. He did have an episode of vomiting. He stated that he Unit #: [id number] #: [id number] Patient: MAICO SALDIVAR was compliant with his medications. His troponins were all negative for significant elevation, which is consistent with no evidence of [place]. His EKG did not show any acute ST abnormalities. An echocardiogram was performed that showed ejection fraction visually estimated at 45 to 50%. Borderline hypokinesis of the septal wall of the left ventricle. Mild to moderate concentric left ventricular hypertrophy, left ventricular size is normal. Pseudonormalization with grade 2 diastolic dysfunction. There was some RV dysfunction with mild tricuspid valve regurgitation and right ventricular systolic pressure at 27 mmHg. Patient's medication were optimized. He was placed on Imdur. Later that night the patient came out to the nurses station, stating that his IV Angiocath had broken off in his arm. An x-ray of the arm revealed a foreign body of a retained small catheter fragment approximately 1.8 cm in length in the ventral medial aspect of the forearm. Dr. Montero with vascular surgery was consulted for foreign body extraction. Yesterday patient underwent foreign body removal and had a right upper extremity nerve block. The foreign body was successfully removed and the dressing was applied to his arm and is to stay there for two days. He is to keep his right arm incision clean and dry. Today I discussed with the patient, he states he is still having chest pain. I told him all his workup has been negative. He has been requesting oral pain medications. His cardiac cath that was performed after his stents were placed shows all patent stenting of three months ago and patent 4 out of 4 bypass grafting. I discussed with Dr. Schuster and he states that the patient can go home today. Use as needed sublingual Nitro and followup with us in the office. CONDITION AT DISCHARGE Stable. DISCHARGE INSTRUCTIONS Followup with Dr. Schuster in the office in two to four weeks. Followup with Dr. Montero in two weeks. Keep right arm incision clean and dry and remove dressing tomorrow, which will be 48 hours after procedure. Dictated by... Alyce Schuster APRN for Nadir Mary M.D. KARLA/zari TD: 10/02/2016 11:54 JOB #: [id number] DISCHARGE SUMMARY Page 1 of 1 X X DISCHARGE SUMMARY
--- NOTE | ~2016-09-28 | CR133 ---
[facility] A Service of [facility] & [facility] RADIOLOGY TEXT RESULTS PATIENT: MAICO SALDIVAR LOCATION: [facility] 570-01 : 87 UNIT #: [id number] AGE: [address]: Abraham Sanches MD SEX: M ORDER DR: [id number] [facility] [address]. [place], [place] [address] [id number] I MR#: [id number] Acc #: [id number] NAME: MAICO SALDIVAR : 1985 SEX: M STUDY DATE/TIME: 09/29/2016 23:34 UNIT: [facility] ROOM: [facility] STUDY DESCRIPTION: CR Forearm 2 View Rt Attending Physician: Kevan Sanches M.D. Ordering Physician: Kevan Sanches M.D. Primary Care Physician: Jovi Griffin M.D. MEDICAL IMAGING REPORT This report is preliminary unless electronic signature is present EXAM Right forearm, 09/29 INDICATION Foreign body in the arm. Retained angiocatheter. Patient had angiocatheter break in the antecubital fossa today. FINDINGS Two views of the forearm were obtained. There is a linear radiopaque foreign body in the soft tissues in the anteromedial aspect of the forearm. It measures approximately 1.8 cm in length. Soft tissues are otherwise normal. The bones are normal. IMPRESSION Retained small catheter fragment in the ventral medial aspect of the forearm proximally measuring about 1.8 cm in length. Dictated by... Medardo Patrick Jr., M.D. THIS IS AN ELECTRONICALLY VERIFIED REPORT Medardo Patrick Jr., M.D. at 09/30/2016 11:25 AM MADDIE/julieta TD: 09/30/2016 09:29 JOB #: [id number] MEDICAL IMAGING REPORT Page 1 of 1 COPY
--- NOTE | ~2016-09-28 | CO ---
Unit #: [id number] #: [id number] Patient: MAICO SALDIVAR [id number] [address] [place], [place] [address] [id number] I MR#: [id number] NAME: MAICO SALDIVAR. ROOM: 570 Age: 31 Sex: M Admission Date: 09/28/2016 : 1985 Attending Physician: Abraham Sanches Primary Care Physician: Jovi Griffin M.D. Consultation Date: 09/30/2016 CONSULTATION REPORT REASON FOR CONSULTATION Retained foreign body in the right arm. HISTORY OF PRESENT ILLNESS This is a 31-year-old male, admitted to [facility] with chest pain. He has a significant heart history including coronary artery bypass grafting x4 earlier this year. The patient was in his hospital bed in room 570 at [facility]'s last night when his right arm that was extended, the IV tubing became entangled and when he lifted his right arm, the catheter pulled out of his right arm. Upon examination of the plastic hub by the patient and the nurse, it was noted that the plastic catheter was no longer attached. A right forearm x-ray showed the catheter tip was retained in the right arm with a length measuring about 1.8 cm. The patient states that his right antecubital fossa is painful, where the IV was pulled out. PAST MEDICAL HISTORY 1. Myocardial infarction with coronary artery bypass grafting x4 in 05/2016. 2. Hypertension. 3. Hyperlipidemia. 4. Diabetes. ALLERGIES No known medical allergies. MEDICATION List includes; colchicine 0.6 mg p.o. daily, hydroxyzine 25 mg p.o. at bedtime, Protonix 40 mg b.i.d., Wellbutrin 150 mg p.o. b.i.d., atorvastatin 80 mg daily, aspirin 81 mg daily, metformin 500 mg p.o. daily, Alton-3 200 mg p.o. b.i.d., Coreg 6.25 mg p.o. b.i.d., Brilinta 90 mg p.o. b.i.d., Ranexa 500 mg p.o. b.i.d., Lovaza two tabs daily, acetaminophen 650 mg p.o. every 6 hours. SOCIAL HISTORY The patient has a history of smoking and marijuana use in the past, however, he reports that he has quit. Denies alcohol or other drug use. REVIEW OF SYSTEMS A 12-point review of systems was completed and otherwise negative unless noted in history of present illness. PHYSICAL EXAMINATION Unit #: [id number] #: [id number] Patient: MAICO SALDIVAR VITAL SIGNS: Temperature 97.9, blood pressure 129/69, respiratory rate 20, heart rate 72. GENERAL APPEARANCE: Obese male, in no acute distress. HEENT: Head is normocephalic. Pupils are equal, round, and reactive to light. NECK: Supple, nontender. No carotid bruits noted. CARDIAC: Regular rate and rhythm. No murmurs. LUNGS: Clear to auscultation. Nonlabored. ABDOMEN: Large rounded abdomen. Positive bowel sounds. Soft, nontender. No distention. MUSCULOSKELETAL: Moves all extremities with full range of motion. VASCULAR: Palpable radial, femoral, DP/PT pulses bilaterally. INTEGUMENTARY: Skin is warm and dry. No redness, swelling, or other skin changes noted of his right antecubital fossa, where the retained body was noted to be. Well-healed mid sternal scar. NEUROLOGIC: Cranial nerves II through XII grossly intact. Normal strength and sensation bilaterally. PSYCHIATRIC: Oriented to person, place, and time. DIAGNOSTIC STUDIES IMAGING STUDIES: Right forearm x-ray demonstrated a retained foreign body measuring 1.8 cm. LABORATORY RESULTS: Sodium 137, potassium 4, chloride 102, CO2 of 25, BUN 14, creatinine 0.9, and glucose 189. Hemoglobin 15.5, hematocrit 46.5, WBC 6.9, platelets 182. ASSESSMENT AND PLAN Retained foreign body. Discussed with patient the option of leaving the catheter in place. The catheter was sterile and may not pose a problem in the long-term if left. After discussing with the patient, he is adamant that he would like for the catheter to be surgically removed. We will plan for surgical removal this afternoon. Obtain consent. The patient may have a clear liquid diet this morning and preparation for after surgery. All questions were answered to his satisfaction. Dictated by... Mark Marshall APRN for Forrest Lennon/chel TD: 10/01/2016 05:24 JOB #: [id number] CONSULTATION REPORT Page 1 of 1 X X CONSULTATION REPORT
--- NOTE | ~2016-09-28 | OR ---
Unit #: [id number] #: [id number] Patient: STANISLAW MCCARTY [id number] [address] [place], [place] [address] [id number] I MR#: [id number] NAME: STANISLAW MCCARTY. ROOM: [facility] Date of Procedure: 09/30/2016 Admission Date: 09/28/2016 Surgeon: Mendel Montero M.D. : 1985 Attending Physician: Abraahm Sanches Primary Care Physician: Jovi Griffin M.D. OPERATIVE REPORT PREOPERATIVE DIAGNOSIS Foreign body, right forearm. POSTOPERATIVE DIAGNOSIS Foreign body, right forearm. PROCEDURES PERFORMED Exploration of right forearm and removal of foreign body. ANESTHESIA Axillary block with MAC. ESTIMATED BLOOD LOSS 10 mL. COMPLICATIONS None. INDICATIONS FOR PROCEDURE Mr. Stanislaw Mccarty is a 31-year-old white male, who was admitted for evaluation of his coronary artery disease. While in the hospital, an IV in his right forearm inadvertently fractured leaving a remnant of the Angiocath in his right forearm. X-rays confirmed the presence of the foreign body in his right forearm. He was offered the option to do nothing and leave the foreign body in his subcutaneous tissue since it had a little risk of causing significant problems. However, he desired to have the foreign body removed. He was taken to the operating room for urgent retrieval of the foreign body. DESCRIPTION OF PROCEDURE The patient was placed in supine position with his right arm abducted on an arm board. His right forearm was prepped and sterilely draped. A C-arm was brought into the room to confirm the location of the foreign body. A longitudinal incision was made over the foreign body just proximal to the puncture site on the skin. Dissection continued through the subcutaneous tissue to look for the foreign body. Exploration continued through the subcutaneous tissue with the use of intermittent fluoroscopy to guide the dissection. Eventually, the foreign body was identified and retrieved intact. The specimen was sent to pathology. Hemostasis was achieved in the wound with the use of electrocautery. The wound was irrigated with normal saline. The subcutaneous tissue was Unit #: [id number] #: [id number] Patient: STANISLAW MCCARTY closed using running 3-0 Vicryl. The skin was closed using running 4-0 Monocryl subcuticular sutures. Sterile dressings were applied. Sponge and needle count were correct. The patient tolerated the procedure well and was taken to the postanesthesia care unit in satisfactory condition. Dictated by... Forrest Lennon/chel TD: 10/01/2016 15:00 JOB #: [id number] OPERATIVE REPORT Page 1 of 1 X Mendel Montero MD X PROCEDURE OPERATIVE NOTE
--- NOTE | ~2016-09-28 | EKG ---
PATIENT: MAICO SALDIVAR UNIT #: [id number] Ventricular Rate: 97 BPM Atrial Rate: 97 BPM P-R Interval: 136 ms QRS Duration: 84 ms Q-T Interval: 358 ms QTC Calculation(Bezet): 454 ms P Brooks: 36 degrees Calculated R Brooks: 19 degrees Calculated T Brooks: 101 degrees Diagnosis Line: Normal sinus rhythm Diagnosis Line: Nonspecific T wave abnormality Diagnosis Line: Abnormal ECG Diagnosis Line: When compared with ECG of 24-AUG-2016 02:42, Diagnosis Line: No significant change was found Diagnosis Line: Confirmed by YESENIA BATISTA MD ([id number]) on Diagnosis Line: 09/30/2016 6:37:17 AM INTERPRETING MD: LUIS
[2016-09-28 22:20] LABS: POC - CKMB <1.0 ng/mL (0.0-7.9); POC - TROPONIN <0.05 ng/mL (<=0.05)
[2016-09-28 22:30] LABS: BASOPHIL% 0.5 % (0-2.5); DIFF IND NO; EOSINOPHIL# 0.2 X10e3 (0-0.7); EOSINOPHIL% 2.3 % (0.0-7.0); HEMATOCRIT 46.5 % (38.0-50.0); HEMOGLOBIN 15.5 gm/dL (13.0-16.0); LYMPHOCYTE% 28.5 % (17.0-45.0); MEAN CELL VOLUME 87.4 FL (83-96); MEAN CORPUSCULAR HGB CONC 33.2 g/dL (30-36); MEAN PLATELET VOLUME 8.3 FL (6.5-11.5); MONOCYTE# 0.4 X10e3 (0-1.0); MONOCYTE% 6.1 % (3.0-12.0); NEUTROPHIL# 4.3 X10e3 (1.5-7.1); NEUTROPHIL% 62.6 % (40-75); PLATELET COUNT 182 X10e3 (140-420); RED BLOOD COUNT 5.32 X10e (3.90-5.60); RED CELL DISTRIBUTION WIDTH 14.5 % (11.0-15.5); WHITE BLOOD COUNT 6.9 X10e3 (4.0-10.5)
[2016-09-28 22:42] LABS: INR 0.9; PARTIAL THROMBOPLASTIN TIME 26.8 SECONDS (23.5-31.3); PROTHROMBIN TIME (PATIENT) 10.3 SECONDS (10.0-11.7)
[2016-09-28 22:56] LABS: ALBUMIN SERUM 3.9 g/dL (3.5-5.0); BILIRUBIN, DIRECT 0.1 mg/dL (0.0-0.2); BILIRUBIN,TOTAL 0.1 mg/dL (0.2-2.0); CREATININE SERUM 0.8 mg/dL (0.6-1.4); GLOM FILT RATE Estimated 120.8 mL/min (>60); POTASSIUM 3.9 mmol/L (3.5-5.1)
[2016-09-29 00:23] LABS: POC - CKMB <1.0 ng/mL (0.0-7.9); POC - TROPONIN <0.05 ng/mL (<=0.05)
[2016-09-29] MEDS ORDERED: ZOLOFT100 MG PO (10:27)
[2016-09-29] MEDS ORDERED: LOPRESSOR PO (10:28)
[2016-09-29] MEDS ORDERED: CLOPIDOGREL75 MG PO (10:29)
[2016-09-29 12:22] LABS: CHOLESTEROL 214 mg/dL (0-200); CK TOTAL 44 IU/L (36-174); HDL CHOLESTEROL 28 mg/dL (29-75); LDL CHOLESTEROL 127 mg/dL (-130); LDL/HDL RATIO 5 RATIO (0-4); TRIGLYCERIDES 293 mg/dL (10-160)
[2016-09-29 18:00] LABS: CK TOTAL 43 IU/L (36-174)
[2016-09-30 00:08] LABS: %MB 1.8 % (0.0-4.0); MB 1.2 ng/ml
[2016-09-30 02:10] LABS: AMPHETAMINE NEG (NEG); BARBITURATES NEG (NEG); BENZODIAZEPINES NEG (NEG); COCAINE NEG (NEG); MARIJUANA NEG (NEG); OPIATES NEG (NEG); TRICYCLIC ANTIDEPRESSANTS NEG (NEG); U METHADONE NEG (NEG)
[2016-09-30 06:36] LABS: BUN/CREATININE RATIO 15.55; CREATININE SERUM 0.9 mg/dL (0.6-1.4); MAGNESIUM 1.8 mg/dL (1.6-3.0)
[2016-09-30 11:24] LABS: PROTHROMBIN TIME (PATIENT) 10.7 SECONDS (10.0-11.7)
[2016-10-01] MEDS ORDERED: IMDUR-ER30 M1 PO (11:21)
[2016-10-01] MEDS ORDERED: NITROSTAT0.4 MG SL (11:26)
== END 2016-10-01 12:09 | disposition home or self-care (01) ==
LOC: CED 20:46 → CEDOF 23:35 → C5C 23:35 → CEDOF 23:35 → CED 09-29 00:33 → CEDOF 09-29 08:10 → C5C 09-29 12:12
PROVIDERS: Emergency Medicine; Internal Medicine Cardiovascular Disease
DX: R07.89 Other chest pain (principal); I25.10 Atherosclerotic heart disease of native coronary artery without angina pectoris; T81.508A Unspecified complication of foreign body accidentally left in body following other procedure, initial encounter; Z95.1 Presence of aortocoronary bypass graft; I25.2 Old myocardial infarction; Z95.5 Presence of coronary angioplasty implant and graft; E66.01 Morbid (severe) obesity due to excess calories; I11.0 Hypertensive heart disease with heart failure; I50.32 Chronic diastolic (congestive) heart failure; E11.43 Type 2 diabetes mellitus with diabetic autonomic (poly)neuropathy; K31.84 Gastroparesis; Z79.84 Long term (current) use of oral hypoglycemic drugs; E78.5 Hyperlipidemia, unspecified; Z87.891 Personal history of nicotine dependence; K21.9 Gastro-esophageal reflux disease without esophagitis
CPT/HCPCS: 36415; 71010; 71020; 73060; 73090; 80048; 80061; 80076; 80307; 82550; 82553; 82947; 83036; 83735; 84443; 84484; 85025; 85610; 85730; 88300; 93005; 93306; 99285; G0378; J0690; J2270; J2405; J2795; J3010

== ENCOUNTER 2016-10-06 16:00 | Emergency (ER) | payer OTHER ==
--- NOTE | ~2016-10-06 | CR72 ---
[facility] A Service of [facility] & [facility] RADIOLOGY TEXT RESULTS PATIENT: MAICO SALDIVAR LOCATION: [facility] : 87 UNIT #: [id number] AGE: [address]: Joni Darby MD SEX: M ORDER DR: [id number] [facility] [address] [place], [place] [address] [id number] E MR#: [id number] Acc #: [id number] NAME: MAICO SALDIVAR : 1985 SEX: M STUDY DATE/TIME: 10/06/2016 16:29 UNIT: [facility] ROOM: STUDY DESCRIPTION: CR Chest Single View Portable Ordering Physician: Albert Sanchez M.D. Primary Care Physician: Jovi Griffin M.D. MEDICAL IMAGING REPORT This report is preliminary unless electronic signature is present EXAM Portable chest 10/06/2016 HISTORY 31-year-old male with chest pain for 2 days. COMPARISON STUDIES Chest 09/29/2016. FINDINGS Frontal chest demonstrates clear lungs. No pleural effusion or pneumothorax. Heart size and mediastinum are normal. Pulmonary vasculature normal. Median sternotomy wires. IMPRESSION No acute cardiopulmonary findings. Dictated by... Abraham Mccartney M.D. THIS IS AN ELECTRONICALLY VERIFIED REPORT Abraham Mccartney M.D. at 10/07/2016 8:33 AM BESSIE/matthew TD: 10/06/2016 23:34 JOB #: [id number] MEDICAL IMAGING REPORT Page 1 of 1 COPY
--- NOTE | ~2016-10-06 | EKG ---
PATIENT: MAICO SALDIVAR UNIT #: [id number] Ventricular Rate: 94 BPM Atrial Rate: 94 BPM P-R Interval: 140 ms QRS Duration: 76 ms Q-T Interval: 358 ms QTC Calculation(Bezet): 447 ms P [place]: 37 degrees Calculated R [place]: 18 degrees Calculated T [place]: 64 degrees Diagnosis Line: Normal sinus rhythm Diagnosis Line: Possible Inferior infarct , age undetermined Diagnosis Line: Abnormal ECG Diagnosis Line: When compared with ECG of 30-SEP-2016 11:08, Diagnosis Line: Vent. rate has increased BY 37 BPM Diagnosis Line: Borderline criteria for Inferior infarct are now Diagnosis Line: Present Diagnosis Line: Nonspecific T wave abnormality, improved in Diagnosis Line: Anterolateral leads Diagnosis Line: QT has lengthened Diagnosis Line: Confirmed by DAR BONE MD ([id number]) on 10/06/2016 Diagnosis Line: 8:43:41 PM INTERPRETING MD: LIZANDRO INGRAM
[~2016-10-06 16:00] MED LIST changes: +IMDUR-ER30 M1 PO; +LOPRESSOR PO; +NITROSTAT0.4 MG SL; +ZOLOFT100 MG PO
[2016-10-06 16:58] LABS: POC - CKMB <1.0 ng/mL (0.0-7.9); POC - TROPONIN <0.05 ng/mL (<=0.05)
[2016-10-06 17:04] LABS: BASOPHIL% 0.3 % (0-2.5); EOSINOPHIL# 0.1 X10e3 (0-0.7); EOSINOPHIL% 1.6 % (0.0-7.0); HEMATOCRIT 44.8 % (38.0-50.0); HEMOGLOBIN 14.8 gm/dL (13.0-16.0); LYMPHOCYTE# 1.8 X10e3 (1.0-3.5); LYMPHOCYTE% 22.1 % (17.0-45.0); MEAN CELL VOLUME 86.8 FL (83-96); MEAN CORPUSCULAR HEMOGLOBIN 28.7 PG (28-34); MEAN PLATELET VOLUME 8.4 FL (6.5-11.5); MONOCYTE# 0.6 X10e3 (0-1.0); MONOCYTE% 7.3 % (3.0-12.0); NEUTROPHIL# 5.7 X10e3 (1.5-7.1); NEUTROPHIL% 68.7 % (40-75); PLATELET COUNT 229 X10e3 (140-420); RED BLOOD COUNT 5.16 X10e (3.90-5.60); RED CELL DISTRIBUTION WIDTH 14.3 % (11.0-15.5); WHITE BLOOD COUNT 8.3 X10e3 (4.0-10.5)
[2016-10-06 17:07] LABS: DIFF IND NO
[2016-10-06 17:10] LABS: INR 0.9; PARTIAL THROMBOPLASTIN TIME 26.6 SECONDS (23.5-31.3); PROTHROMBIN TIME (PATIENT) 10.3 SECONDS (10.0-11.7)
[2016-10-06 17:18] LABS: BILIRUBIN, DIRECT 0.1 mg/dL (0.0-0.2); BILIRUBIN,INDIRECT 0.3 mg/dL (0.0-0.9); BILIRUBIN,TOTAL 0.4 mg/dL (0.2-2.0); BUN/CREATININE RATIO 15.71; CALCIUM SERUM 9.1 mg/dL (8.4-10.2); CREATININE SERUM 0.7 mg/dL (0.6-1.4); GLOM FILT RATE Estimated 127.6 mL/min (>60); POTASSIUM 4.1 mmol/L (3.5-5.1); PROTEIN TOTAL SERUM 7.3 g/dL (6.0-8.3)
[2016-10-06 18:34] LABS: POC - CKMB <1.0 ng/mL (0.0-7.9); POC - TROPONIN <0.05 ng/mL (<=0.05)
== END 2016-10-06 19:05 | disposition home or self-care (01) ==
LOC: CED 16:00
PROVIDERS: Emergency Medicine
DX: R07.89 Other chest pain (principal); I25.2 Old myocardial infarction; Z87.891 Personal history of nicotine dependence; I10 Essential (primary) hypertension; E78.5 Hyperlipidemia, unspecified
CPT/HCPCS: 36415; 71010; 80048; 80076; 82553; 84484; 85025; 85610; 85730; 93005; 99285; J1885

== ENCOUNTER 2016-10-20 15:18 | Emergency (ER) | payer OTHER | END 2016-10-20 17:28 | disposition home or self-care (01) | LOC: CED 15:18 → CFTX 15:18 | DX: L03.113 Cellulitis of right upper limb (principal); I25.2 Old myocardial infarction; E11.9 Type 2 diabetes mellitus without complications; E78.5 Hyperlipidemia, unspecified; I10 Essential (primary) hypertension; F31.9 Bipolar disorder, unspecified; F17.210 Nicotine dependence, cigarettes, uncomplicated; Z79.82 Long term (current) use of aspirin; Z79.899 Other long term (current) drug therapy; Z88.6 Allergy status to analgesic agent | CPT/HCPCS: 99283 ==

== ENCOUNTER 2016-10-26 17:59 | Emergency (ER) | payer OTHER ==
[~2016-10-26] VITALS: Ht 188 cm; Wt 129.7 kg
--- NOTE | ~2016-10-26 | EKG ---
PATIENT: MAICO SALDIVAR UNIT #: [id number] Ventricular Rate: 93 BPM Atrial Rate: 93 BPM P-R Interval: 132 ms QRS Duration: 88 ms Q-T Interval: 374 ms QTC Calculation(Bezet): 465 ms P [place]: 33 degrees Calculated R [place]: 30 degrees Calculated T [place]: 54 degrees Diagnosis Line: Normal sinus rhythm Diagnosis Line: Possible Inferior infarct (cited on or before Diagnosis Line: 06-OCT-2016) Diagnosis Line: Abnormal ECG Diagnosis Line: When compared with ECG of 06-OCT-2016 16:20, Diagnosis Line: No significant change was found Diagnosis Line: Confirmed by DONNIE DAWSON MD ([id number]) on Diagnosis Line: 10/28/2016 7:29:36 AM INTERPRETING MD: EUNICE INGRAM
--- NOTE | ~2016-10-26 | CR72 ---
[facility] A Service of [facility] & [facility] RADIOLOGY TEXT RESULTS PATIENT: MAICO SALDIVAR LOCATION: [facility] : 87 UNIT #: [id number] AGE: [address]: Medardo Jacobs MD SEX: M ORDER DR: [id number] [facility] [address] [place], [place] [address] [id number] E MR#: [id number] Acc #: [id number] NAME: MAICO SALDIVAR : 1985 SEX: M STUDY DATE/TIME: 10/26/2016 18:51 UNIT: [facility] ROOM: STUDY DESCRIPTION: CR Chest Single View Portable Attending Physician: Medardo Jacobs M.D. Ordering Physician: Medardo Jacobs M.D. Primary Care Physician: Jovi Griffin M.D. MEDICAL IMAGING REPORT This report is preliminary unless electronic signature is present EXAM Portable chest 10/26/2016 HISTORY 31-year-old male with chest pain beginning today. COMPARISON Chest 10/06/2016 FINDINGS Frontal chest demonstrates clear lungs. No pleural effusion or pneumothorax. Heart size and mediastinum are within normal limits. Pulmonary vasculature unremarkable. Median sternotomy wires. IMPRESSION No acute cardiopulmonary findings Dictated by... Abraham Mccartney M.D. THIS IS AN ELECTRONICALLY VERIFIED REPORT Abraham Mccartney M.D. at 10/27/2016 3:58 PM BESSIE/donovan TD: 10/27/2016 05:10 JOB #: [id number] MEDICAL IMAGING REPORT Page 1 of 1 COPY
[2016-10-26 18:52] LABS: BASOPHIL# 0.1 X10e3 (0-0.3); BASOPHIL% 0.9 % (0-2.5); EOSINOPHIL# 0.1 X10e3 (0-0.7); HEMOGLOBIN 15.6 gm/dL (13.0-16.0); LYMPHOCYTE# 2.2 X10e3 (1.0-3.5); LYMPHOCYTE% 29.2 % (17.0-45.0); MEAN CELL VOLUME 85.9 FL (83-96); MEAN CORPUSCULAR HEMOGLOBIN 28.5 PG (28-34); MEAN CORPUSCULAR HGB CONC 33.2 g/dL (30-36); MEAN PLATELET VOLUME 8.2 FL (6.5-11.5); MONOCYTE# 0.5 X10e3 (0-1.0); NEUTROPHIL# 4.6 X10e3 (1.5-7.1); NEUTROPHIL% 61.9 % (40-75); PLATELET COUNT 206 X10e3 (140-420); RED BLOOD COUNT 5.47 X10e (3.90-5.60); RED CELL DISTRIBUTION WIDTH 13.9 % (11.0-15.5); WHITE BLOOD COUNT 7.5 X10e3 (4.0-10.5)
[2016-10-26 18:59] LABS: DIFF IND NO
[2016-10-26 19:04] LABS: PARTIAL THROMBOPLASTIN TIME 27.7 SECONDS (23.5-31.3); PROTHROMBIN TIME (PATIENT) 10.7 SECONDS (10.0-11.7)
[2016-10-26 19:13] LABS: BILIRUBIN, DIRECT 0.1 mg/dL (0.0-0.2); BILIRUBIN,INDIRECT 0.8 mg/dL (0.0-0.9); BILIRUBIN,TOTAL 0.9 mg/dL (0.2-2.0); BUN/CREATININE RATIO 11.11; CALCIUM SERUM 9.1 mg/dL (8.4-10.2); CREATININE SERUM 0.9 mg/dL (0.6-1.4); POTASSIUM 3.7 mmol/L (3.5-5.1); PROTEIN TOTAL SERUM 7.6 g/dL (6.0-8.3)
[2016-10-26 19:48] LABS: POC - CKMB <1.0 ng/mL (0.0-7.9); POC - TROPONIN <0.05 ng/mL (<=0.05)
[2016-10-26 21:05] LABS: POC - CKMB <1.0 ng/mL (0.0-7.9); POC - TROPONIN <0.05 ng/mL (<=0.05)
[2016-10-26 23:25] LABS: POC - CKMB <1.0 ng/mL (0.0-7.9); POC - TROPONIN <0.05 ng/mL (<=0.05)
== END 2016-10-26 23:25 | disposition home or self-care (01) ==
LOC: CED 17:59
PROVIDERS: Emergency Medicine
DX: R07.89 Other chest pain (principal); E11.9 Type 2 diabetes mellitus without complications; I11.0 Hypertensive heart disease with heart failure; I50.9 Heart failure, unspecified; Z95.1 Presence of aortocoronary bypass graft; F17.200 Nicotine dependence, unspecified, uncomplicated; Z88.6 Allergy status to analgesic agent
CPT/HCPCS: 36415; 71010; 80048; 80076; 82553; 83880; 84484; 85025; 85610; 85730; 93005; 96374; 96375; 99285; J1940; J2270

== ENCOUNTER 2016-11-14 21:40 | Observation (INO) | payer OTHER ==
[~2016-11-14] VITALS: Ht 188 cm; Wt 146.5 kg
--- NOTE | ~2016-11-14 | EKG ---
PATIENT: MAICO SALDIVAR UNIT #: [id number] Ventricular Rate: 54 BPM Atrial Rate: 54 BPM P-R Interval: 152 ms QRS Duration: 90 ms Q-T Interval: 464 ms QTC Calculation(Bezet): 440 ms P [place]: 33 degrees Calculated R [place]: 29 degrees Calculated T [place]: 42 degrees Diagnosis Line: Sinus bradycardia Diagnosis Line: Inferior infarct (cited on or before 15-NOV-2016) Diagnosis Line: Abnormal ECG Diagnosis Line: When compared with ECG of 15-NOV-2016 19:23, Diagnosis Line: (unconfirmed) Diagnosis Line: No significant change was found Diagnosis Line: Confirmed by DONNIE DAWSON MD ([id number]) on Diagnosis Line: 11/20/2016 11:12:02 AM INTERPRETING MD: EUNICE INGRAM
--- NOTE | ~2016-11-14 | DS ---
Unit #: [id number] #: [id number] Patient: MAICO SALDIVAR [id number] [address] [place], [place] [address] [id number] I MR#: [id number] NAME: MAICO SALDIVAR ROOM: [facility] Age: 31 Sex: M Admission Date: 11/15/2016 : 1985 Discharge Date: 11/16/2016 Attending Physician: Hua Schmitz M.D. Primary Care Physician: Jovi Griffin M.D. DISCHARGE SUMMARY DISCHARGE DIAGNOSES 1. Three vessel coronary artery disease with patent stents in the ramus and distal RCA, ARMENTA to the LAD was with widely patent, saphenous vein to the OM2 widely patent. Saphenous vein to the OM1 is 100% occluded. 2. Saphenous vein to the diagonal 99% stenosis with RAH-II flow, normal LV systolic function. 3. Status post stenting to the saphenous vein diagonal vessel 2.5 x 38 plus 2.75 x 38 stents overlapping, placed in the saphenous vein graft to the diagonal. Patient has RAH-III flow. Next, chest pain ruled out for acute coronary syndrome. 4. Obesity. 5. History of CABG 05/2016. 6. History of non-ST elevated myocardial infarction, post CABG, two weeks later with subsequent stenting. 7. Dyslipidemia with elevated triglycerides of 1357. 8. Hypertension. 9. Diabetes mellitus. 10. Tobacco abuse. DISCHARGE MEDICATIONS 1. Wellbutrin XL 150 mg p.o. b.i.d. 2. Zoloft 100 mg p.o. daily. 3. Atorvastatin 80 mg p.o. q.h.s. 4. Carvedilol 6.25 mg p.o. b.i.d. 5. Altace 5 mg p.o. daily. 6. Colchicine 0.6 mg p.o. daily. 7. Aspirin 81 mg p.o. daily. 8. Renexa 500 mg p.o. b.i.d. 9. Brilinta 90 mg p.o. b.i.d. 10. Protonix 40 mg p.o. b.i.d. 11. Isosorbide mononitrate 30 mg p.o. daily. 12. Nitroglycerin sublingual 0.4 mg tabs q.5 minutes x3 p.r.n. chest pain. 13. TriCor 145 mg p.o. daily. HOSPITAL COURSE This is a pleasant 31-year-old obese, male with a significant prior cardiac history. He is status post CABG x4 on 06/06/2016 at [facility] with subsequent non-STEMI two weeks following his open heart surgery with stent placement at that time to the proximal ramus in the mid posterolateral branch of the RCA. The patient presented with complaints of chest pain, which was associated with diaphoresis, nausea, and vomiting. He reports his pain is similar to his previous episodes in Unit #: [id number] #: [id number] Patient: MAICO SALDIVAR the past. He did rule out for acute coronary syndrome. Cardiac enzymes were negative. However, it was decided the patient needed a repeat cardiac catheterization. It is notable the patient did have cardiac catheterization in 07/2016, at that time all of his vessels were open. Dr. Fowler took him back to chemical laboratory scientist on 11/15/2016 and the results were as follows: 1. Three vessel coronary artery disease. 2. Patent stent in the ramus and distal RCA. 3. ARMENTA to the LAD is widely patent. 4. Saphenous vein graft to the OM2 is widely patent. 5. Saphenous vein graft to the OM1 is 100% occluded. 6. Saphenous vein graft to the diagonal 99% stenosis and RAH-2 flow. 7. Normal LV systolic function. He did received stents to the saphenous vein graft of the diagonal vessel. Patient was kept in the hospital for monitoring overnight. He has had no ventricular arrhythmias. Throughout the evening he had no complaints of chest pain; however, this morning when I went to assess him he was complaining of some left-sided chest pain. EKG was ordered and showed no acute changes. Will check a troponin at noon. If his troponin is negative, he will be discharged home later today after ambulation. His groin site has been checked and shows no evidence of hematoma or swelling. Also during his hospitalization, lipid panel was checked. His triglycerides were found to be very elevated in the 1300 range. He has been seen and evaluated today by Dr. Schuster who agrees that the patient is stable for discharge. There were no consultants on this case. DIAGNOSTIC STUDIES LABORATORY STUDIES: Glucose is 179, BUN 13, creatinine 0.9, sodium 133, potassium 4.2, chloride 102, CO2 24, calcium 8.4. Troponins have been negative throughout his hospitalization. He does have a repeat troponin, which is pending at noon. BNP 31. Cholesterol panel shows total cholesterol 227. Triglycerides 1357. LDL 127. HDL 27. Coags were within normal limits. Hemoglobin 14.5, hematocrit 41.3, WBC 8.6, platelet count 193. IMAGING STUDIES: Chest x-ray showed no acute cardiopulmonary disease, status post CABG with normal appearing heart size. Intact sternotomy wires. CARDIOLOGY STUDIES: EKG - repeat from this morning shows sinus bradycardia rate of 57 BPM. Possible prior inferior infarct age undetermined. QTC interval 422 msec. No acute ischemic change or ST elevations noted. PHYSICAL EXAMINATION GENERAL: This is pleasant, obese, 31-year-old male in no acute distress. VITAL SIGNS: Temperature is 98.1, respiratory rate is 16-20, pulse 59-60, blood pressure 136/88, BMI is 36. HEENT: Head is atraumatic and normocephalic. Pupils equal and round. Mucus membranes are moist. NECK: Trachea is midline. No JVD. No thyromegaly. Carotid upstrokes are normal. CARDIOVASCULAR: S1, S2. No murmur, gallop, or rub. Unit #: [id number] #: [id number] Patient: MAICO SALDIVAR LUNGS: Clear to auscultation. No adventitious breath sounds. No rales. No rhonchi. No wheezes. ABDOMEN: Obese, soft, nontender, nondistended. Bowel sounds are present. EXTREMITIES: Pulses are palpable. No clubbing, cyanosis, or edema. Right groin calf site has dressing in place, is soft, no bruising or hematoma is noted. NEUROLOGIC: He is awake, alert and oriented. He follows commands. He moves all extremities equally. DISCHARGE INSTRUCTIONS Patient is status post stenting to his saphenous to his diagonal vessel. He has been kept in the hospital overnight. He has had no sustained arrhythmias. No chest pain throughout the night, but one episode of some transient chest pain this morning. EKG revealed no acute changes. Will check a troponin at noon. If negative, the patient will be discharged home later today. It was explained to the patient that he could be having possible vasospasm post intervention and that is not uncommon. He has been started on Ranexa 500 mg p.o. b.i.d. for his chest pain, along with his Imdur. It is also noted that his triglycerides were found to be very elevated during this hospitalization. The patient was also started on TriCor in addition to his high dose statin therapy. He was advised to get up and ambulate. We have reviewed post cardiac cath instructions with him and also discussed the importance of smoking cessation, as the patient has continued to smoke. He is to be continued on dual antiplatelet therapy for the next year uninterrupted. He will also continue with his beta-sirisha, RIRI inhibitor, high dose statin therapy, as well as nitrates. Patient was advised if further chest pain should occur, to call the office or if it persists to call an ambulance for re-evaluation. He was also informed on the importance of monitoring his groin site and signs and symptoms of bleeding, as well as infection. These were all explained in detail. The patient verbalized understanding. He does state he would like to change physicians and he would like to follow up with Dr. Fowler in the office. Patient was advised to follow up with his primary care physician in one week and he is to follow up with Dr. Fowler in the [facility] office in approximately two weeks. Dictated by... Angel Hansen/zari TD: 11/18/2016 09:17 JOB #: [id number] Unit #: [id number] #: [id number] Patient: MAICO SALDIVAR [place] DISCHARGE SUMMARY Page 1 of 1 X Analilia Bob APRN DISCHARGE SUMMARY
--- NOTE | ~2016-11-14 | EKG ---
PATIENT: MAICO SALDIVAR UNIT #: [id number] Ventricular Rate: 63 BPM Atrial Rate: 63 BPM P-R Interval: 136 ms QRS Duration: 84 ms Q-T Interval: 432 ms QTC Calculation(Bezet): 442 ms P [place]: 14 degrees Calculated R [place]: 25 degrees Calculated T [place]: 50 degrees Diagnosis Line: Normal sinus rhythm Diagnosis Line: Normal ECG Diagnosis Line: When compared with ECG of 14-NOV-2016 21:55, Diagnosis Line: (unconfirmed) Diagnosis Line: Vent. rate has decreased BY 32 BPM Diagnosis Line: Confirmed by DAR BONE MD ([id number]) on 11/16/2016 Diagnosis Line: 12:04:11 AM INTERPRETING MD: LIZANDRO INGRAM
--- NOTE | ~2016-11-14 | EKG ---
PATIENT: MAICO SALDIVAR UNIT #: [id number] Ventricular Rate: 95 BPM Atrial Rate: 95 BPM P-R Interval: 138 ms QRS Duration: 88 ms Q-T Interval: 352 ms QTC Calculation(Bezet): 442 ms P [place]: 38 degrees Calculated R [place]: 28 degrees Calculated T [place]: 55 degrees Diagnosis Line: Normal sinus rhythm Diagnosis Line: Pulmonary disease pattern Diagnosis Line: Cannot rule out , old Inferior infarct Diagnosis Line: Abnormal ECG Diagnosis Line: No previous ECGs available Diagnosis Line: Confirmed by DAR BONE MD ([id number]) on 11/15/2016 Diagnosis Line: 11:50:54 PM INTERPRETING MD: LIZANDRO INGRAM
--- NOTE | ~2016-11-14 | EKG ---
PATIENT: MAICO SALDIVAR UNIT #: [id number] Ventricular Rate: 68 BPM Atrial Rate: 68 BPM P-R Interval: 134 ms QRS Duration: 90 ms Q-T Interval: 430 ms QTC Calculation(Bezet): 457 ms P [place]: 14 degrees Calculated R [place]: 28 degrees Calculated T [place]: 58 degrees Diagnosis Line: Normal sinus rhythm Diagnosis Line: Possible Inferior infarct , age undetermined Diagnosis Line: Abnormal ECG Diagnosis Line: When compared with ECG of 15-NOV-2016 09:50, Diagnosis Line: (unconfirmed) Diagnosis Line: No significant change was found Diagnosis Line: Confirmed by DONNIE DAWSON MD ([id number]) on Diagnosis Line: 11/20/2016 11:11:58 AM INTERPRETING MD: EUNICE INGRAM
--- NOTE | ~2016-11-14 | CR72 ---
[facility] A Service of [facility] & [facility] RADIOLOGY TEXT RESULTS PATIENT: MAICO SALDIVAR LOCATION: [place] [address] : [birth year] UNIT #: [id number] AGE: [address]: Hua Schmitz MD SEX: M ORDER DR: [id number] [facility] [address] [place], [place] [address] [id number] I MR#: [id number] Acc #: [id number] NAME: MAICO SALDIVAR : 1985 SEX: M STUDY DATE/TIME: 11/14/2016 22:48 UNIT: [facility] ROOM: [facility] STUDY DESCRIPTION: CR Chest Single View Portable Attending Physician: Hua Schmitz M.D. Ordering Physician: Jeramie Bnaks D.O. Primary Care Physician: Jovi Griffin M.D. MEDICAL IMAGING REPORT This report is preliminary unless electronic signature is present EXAM Single view of the chest dated 11/14/2016. COMPARISON Chest 2 views dated 11/07/2016. HISTORY Chest pain today. History of CHF. Quadruple bypass in May 2016. TECHNIQUE Single view of the chest was obtained. FINDINGS No acute cardiopulmonary disease. Status post CABG with normal-appearing heart size. Bones are stable without any significant new abnormality. Intact sternotomy wires. Dictated by... Nidia Page M.D. THIS IS AN ELECTRONICALLY VERIFIED REPORT Nidia Page M.D. at 11/16/2016 3:21 PM CPR/gz TD: 11/15/2016 11:57 JOB #: [id number] MEDICAL IMAGING REPORT Page 1 of 1 COPY
--- NOTE | ~2016-11-14 | EKG ---
PATIENT: MAICO SALDIVAR UNIT #: [id number] Ventricular Rate: 57 BPM Atrial Rate: 57 BPM P-R Interval: 160 ms QRS Duration: 96 ms Q-T Interval: 434 ms QTC Calculation(Bezet): 422 ms P [place]: 20 degrees Calculated R [place]: 27 degrees Calculated T [place]: 45 degrees Diagnosis Line: Sinus bradycardia Diagnosis Line: When compared with ECG of 16-NOV-2016 05:42, Diagnosis Line: (unconfirmed) Diagnosis Line: No significant change was found Diagnosis Line: Confirmed by DAR BONE MD ([id number]) on 11/16/2016 Diagnosis Line: 11:14:33 PM INTERPRETING MD: LIZANDRO INGRAM
--- NOTE | ~2016-11-14 | HP ---
Unit #: [id number] #: [id number] Patient: MAICO SALDIVAR [id number] [address] [address] [id number] I MR#: [id number] NAME: MAICO SALDIVAR ROOM: [facility] Age: 31 Sex: M Admission Date: 11/15/2016 : 1985 Attending Physician: Hua Schmitz M.D. Primary Care Physician: Jovi Griffin M.D. HISTORY AND PHYSICAL HISTORY OF PRESENT ILLNESS This is a pleasant 31-year-old male with a past medical history of known coronary artery disease, non-STEMI, CABG x4 on June 06, 2016 at [facility], hypertension, hyperlipidemia, diabetes mellitus, hypothyroidism, reformed tobacco abuse, as well as a family history of coronary artery disease. The patient presented to the emergency room with complaints of chest pain. Reports the pain has been going on about an hour with pain in the substernal area with radiation into the back, as well as down the left arm. He does report diaphoresis associated with this, as well as nausea and vomiting. In the emergency room, EKG was performed, which shows normal sinus rhythm, rate of 95 beats per minute, possible inferior infarct, age undetermined. QTc interval 442 msec. No acute ischemic change was noted. Initial cardiac enzymes have been negative. The patient does report this pain was similar to what he has experienced in the past with his previous MA. He is concerned, and now we have admitted the patient for evaluation of the above. PAST MEDICAL HISTORY 1. Non-ST elevation MA in May 2016, followed by CABG x4 at [facility]. 2. Recurrent MA in June 2016 with stent placement x2. The patient had stents placed to the proximal ramus and mid posterolateral branch of the RCA. 3. Hypertension. 4. Hyperlipidemia. 5. Hypothyroidism. 6. Diabetes mellitus type 2. 7. GERD. 8. Obesity. 9. Gastroparesis. 10. LVEF of 45% to 50%. Moderate LVH. Grade 2 diastolic dysfunction. PAST SURGICAL HISTORY 1. Coronary artery bypass grafting x4 at [facility]. 2. Stent placement, two weeks post coronary artery bypass graft, to the proximal ramus, as well as the mid posterolateral branch of the RCA. 3. Cardiac cath performed at [facility] July 09, [address] Gutierrez shows: a. Left main 20% to 30% ostial stenosis with no critical stenosis. Unit #: [id number] #: [id number] Patient: MAICO SALDIVAR b. LAD 70% ostial stenosis with 50% stenosis in its proximal third, 70% stenosis at the ostium of the first diagonal branch, competitive flow seen from the FAN graft. c. Left circumflex was totally occluded proximally. d. The ramus intermedius branch was fairly large caliber with ramus stent being widely patent. e. Right coronary artery is dominant for posterior circulation (1) the right coronary cusp diffuse luminal irregularities throughout the proximal 2/3. Distally, there is 20% stenosis in the proximal portion of the PDA. There was a stent at the ostium of the branch of the PLV, which was widely patent. f. Bypass grafts were as follows: Saphenous vein graft number 1 was widely patent with good runoff into the small caliber [place] vessel. The saphenous vein graft number 2 was widely patent throughout its course with good runoff into the small caliber marginal branch. Saphenous vein graft number 3 was widely patent throughout its course with good runoff. The left internal mammary graft to the mid LAD was widely patent throughout its course with good runoff into the mid distal [place] LAD. g. At that time, continued medical therapy was recommended. Cath results were essentially unchanged from 07/07/2016. ALLERGIES No known drug allergies. HOME MEDICATIONS 1. Colchicine 0.6 mg p.o. daily. 2. Protonix 40 mg p.o. b.i.d. 3. Lipitor 80 mg p.o. daily. 4. Aspirin 81 mg p.o. daily. 5. Carvedilol 6.25 mg p.o. b.i.d. 6. Brilinta 90 mg p.o. b.i.d. 7. Acetaminophen 650 mg p.o. q.6 hours p.r.n. 8. Zoloft 100 mg p.o. daily. 9. Imdur ER 30 mg p.o. b.i.d. 10. Wellbutrin 1 tab p.o. daily. 11. Altace 5 mg p.o. daily. FAMILY HISTORY The patient does have a family history of premature coronary artery disease in his father with an MA at the age of 36 and a subsequent MA at the age of 46. Father also has multiple stents. SOCIAL HISTORY The patient is a reformed smoker. Quit smoking in May 2016. Prior to that he was smoking since the age of 18 one pack of cigarettes daily. Quit drinking in March of 2016 and also denies any illicit drug use at this time. REVIEW OF SYSTEMS A 10-point review of systems has been done and is considered otherwise negative except for what was stated above in the HPI. PHYSICAL EXAM GENERAL: This is a pleasant obese male in no acute distress. VITAL SIGNS: Temperature is 98, respiratory rate 20, pulse 57, blood pressure 113/68, BMI about 36. Unit #: [id number] #: [id number] Patient: MAICO SALDIVAR HEENT: Head is atraumatic, normocephalic. Pupils are equal and round. NECK: Trachea is midline. No thyromegaly. No JVD. Carotid upstrokes are normal. CARDIOVASCULAR: S1, S2. No murmur, gallop or rub. PULMONARY: Lungs are clear to auscultation throughout. No adventitious breath sounds. No rales. No rhonchi. No wheezes. ABDOMEN: Obese, soft, nontender, nondistended. Bowel sounds are present. EXTREMITIES: Pulses are palpable. No clubbing, cyanosis or edema. NEUROLOGIC: The patient is awake, alert and oriented. He answers questions and follows commands appropriately. He moves all extremities with ease. DIAGNOSTIC STUDIES LABORATORY: Glucose 140, BUN 12, creatinine 0.9, sodium 138, potassium 3.9, CO2 23, chloride 104, albumin 3.8. Liver function tests are within normal limits. Troponins have been less than 0.03 x2. BNP was 31. Coags were within normal limits. D-dimer 229. Hemoglobin 15.5, hematocrit 45.5, WBC 8.6, platelet count 203. No chem tox was performed this admission. September 30, 2016 chem tox was negative. CARDIOVASCULAR: EKG shows normal sinus rhythm. Cannot rule out anterior infarct. QTc interval 442 msec. No acute ischemic change is noted. IMPRESSION 1. Chest pain, rule out for acute coronary syndrome. 2. History of coronary artery disease with coronary artery bypass graft x4 in May of 2016 at [facility]. 3. Subsequent non-STEMI in June of 2016 with stent placement to proximal ramus and mid posterolateral branch of the RCA. 4. Hypertension. 5. Hyperlipidemia. 6. Diabetes mellitus type 2. 7. Obesity. 8. Reformed tobacco abuse. PLAN The patient has been seen and evaluated. He continues to complain of chest pain, which he reports as similar in nature to his previous heart attacks. He has been compliant with his medication regimen and is on optimal medical therapy, which includes beta-sirisha, Imdur, dual antiplatelet therapy, angiotensin-converting enzyme and statin therapy. At this time there are no signs or symptoms of volume overload. Last ejection fraction was noted to be 45% to 50% with moderate LVH, grade 2 diastolic dysfunction. The patient did have a recent stress test in August of 2016, which was abnormal, but nondiagnostic on his stress EKG, which was very suggestive of ischemia, small vessel, but very minimal inferior wall ischemia was noted. Continued medical therapy was recommended at that time. This was read per Dr. Philip Schuster. Would recommend at this time addition of Ranexa in order to help with his anginal equivalent. Will start the patient on 500 mg p.o. b.i.d. and will also check labs in the morning. Dr. Fowler has seen and evaluated and has determined that the patient will go for cardiac catheterization later this afternoon. He will have a clear liquid diet for breakfast and will proceed with testing to reevaluate his coronary anatomy this afternoon. Risks and benefits were explained to the patient regarding this procedure, and he is agreeable. Will also obtain operative note from [facility]. He will be kept NPO after his clear liquid breakfast. The patient is willing and agreeable to proceed with intervention. If his coronaries show no new Unit #: [id number] #: [id number] Patient: MAICO SALDIVAR disease, he may be able to be discharged home later today or tomorrow pending the outcome of the cardiac cath. Will initiate pre-cath orders. Dictated by Analilia Bob A.P.R.N. for Forrest Bernal/db TD: 11/15/2016 12:03 JOB #: [id number] HISTORY AND PHYSICAL Page 1 of 1 X Analilia Bob APRN HISTORY AND PHYSICAL
[2016-11-14 22:46] LABS: POC - CKMB <1.0 ng/mL (0.0-7.9); POC - TROPONIN <0.05 ng/mL (<=0.05)
[2016-11-14 22:51] LABS: BASOPHIL% 0.4 % (0-2.5); EOSINOPHIL# 0.1 X10e3 (0-0.7); EOSINOPHIL% 1.4 % (0.0-7.0); HEMATOCRIT 44.2 % (38.0-50.0); HEMOGLOBIN 15.2 gm/dL (13.0-16.0); LYMPHOCYTE# 2.2 X10e3 (1.0-3.5); MEAN CELL VOLUME 85.8 FL (83-96); MEAN CORPUSCULAR HEMOGLOBIN 29.5 PG (28-34); MEAN CORPUSCULAR HGB CONC 34.4 g/dL (30-36); MEAN PLATELET VOLUME 8.4 FL (6.5-11.5); MONOCYTE# 0.7 X10e3 (0-1.0); NEUTROPHIL# 6.9 X10e3 (1.5-7.1); NEUTROPHIL% 69.2 % (40-75); PLATELET COUNT 201 X10e3 (140-420); RED BLOOD COUNT 5.15 X10e (3.90-5.60); RED CELL DISTRIBUTION WIDTH 13.8 % (11.0-15.5)
[2016-11-14 22:52] LABS: DIFF IND NO
[2016-11-14 22:58] LABS: INR 0.9; PARTIAL THROMBOPLASTIN TIME 25.9 SECONDS (23.5-31.3); PROTHROMBIN TIME (PATIENT) 10.2 SECONDS (10.0-11.7)
[2016-11-14 23:01] LABS: ALBUMIN SERUM 3.8 g/dL (3.5-5.0); ALKALINE PHOSPHATASE 54 U/L (32-92); ALT (SGPT) 20 U/L (10-40); AST (SGOT) 18 U/L (10-42); BILIRUBIN,TOTAL 0.5 mg/dL (0.2-2.0); BLOOD UREA NITROGEN 12 mg/dL (9-23); BUN/CREATININE RATIO 13.33; CALCIUM SERUM 8.9 mg/dL (8.4-10.2); CARBON DIOXIDE 24 mmol/L (22-31); CHLORIDE 104 mmol/L (100-111); CREATININE SERUM 0.9 mg/dL (0.6-1.4); GLUCOSE FASTING 216 mg/dL (70-110); SODIUM 137 mmol/L (135-145)
[2016-11-14 23:02] LABS: BILIRUBIN, DIRECT <0.1 mg/dL (0.0-0.2); BILIRUBIN,INDIRECT 0.4 mg/dL (0.0-0.9)
[2016-11-15 00:58] LABS: POC - CKMB <1.0 ng/mL (0.0-7.9); POC - TROPONIN <0.05 ng/mL (<=0.05)
[2016-11-15] MEDS ORDERED: WELLBUTRIN XL150 M2 PO (01:20)
[2016-11-15] MEDS ORDERED: ALTACE PO (01:20)
[2016-11-15 06:14] LABS: BUN/CREATININE RATIO 13.33; CALCIUM SERUM 8.8 mg/dL (8.4-10.2); CREATININE SERUM 0.9 mg/dL (0.6-1.4); POTASSIUM 3.9 mmol/L (3.5-5.1)
[2016-11-15 09:46] LABS: HEMATOCRIT 45.5 % (38.0-50.0); HEMOGLOBIN 15.5 gm/dL (13.0-16.0); MEAN CELL VOLUME 85.2 FL (83-96); MEAN CORPUSCULAR HEMOGLOBIN 29.1 PG (28-34); MEAN CORPUSCULAR HGB CONC 34.1 g/dL (30-36); MEAN PLATELET VOLUME 8.1 FL (6.5-11.5); RED BLOOD COUNT 5.34 X10e (3.90-5.60); RED CELL DISTRIBUTION WIDTH 13.8 % (11.0-15.5); WHITE BLOOD COUNT 8.6 X10e3 (4.0-10.5)
[2016-11-15 10:00] LABS: PARTIAL THROMBOPLASTIN TIME 26.6 SECONDS (23.5-31.3); PROTHROMBIN TIME (PATIENT) 10.7 SECONDS (10.0-11.7)
[2016-11-16 03:54] LABS: HEMATOCRIT 41.3 % (38.0-50.0); HEMOGLOBIN 14.5 gm/dL (13.0-16.0); MEAN CELL VOLUME 85.6 FL (83-96); MEAN CORPUSCULAR HGB CONC 35.1 g/dL (30-36); MEAN PLATELET VOLUME 8.2 FL (6.5-11.5); RED BLOOD COUNT 4.82 X10e (3.90-5.60); RED CELL DISTRIBUTION WIDTH 13.5 % (11.0-15.5); WHITE BLOOD COUNT 8.6 X10e3 (4.0-10.5)
[2016-11-16 04:42] LABS: BUN/CREATININE RATIO 14.44; CALCIUM SERUM 8.4 mg/dL (8.4-10.2); CREATININE SERUM 0.9 mg/dL (0.6-1.4); POTASSIUM 4.2 mmol/L (3.5-5.1)
[2016-11-16 05:01] LABS: ANGIO %MB 0.9 % (0.0-4.0); ANGIO MB 1.6 ng/ml
[2016-11-16 05:02] LABS: CHOLESTEROL 227 mg/dL (0-200); HDL CHOLESTEROL 27 mg/dL (29-75)
[2016-11-16 05:03] LABS: TRIGLYCERIDES 1357 mg/dL (10-160)
[2016-11-16 12:33] LABS: CK TOTAL 44 IU/L (36-174)
[2016-11-16 12:52] LABS: ANGIO %MB 3.3 % (0.0-4.0); ANGIO MB 1.5 ng/ml
[2016-11-16] MEDS ORDERED: RANEXA500 MG PO (15:16)
[2016-11-16] MEDS ORDERED: TRICOR145 MG PO (15:17)
[2016-11-16] MEDS ORDERED: NITROSTAT0.4 MG SL (15:20)
[2016-11-16] MEDS ORDERED: WELLBUTRIN XL150 M1 PO (15:49)
== END 2016-11-16 16:51 | disposition home or self-care (01) ==
LOC: CED 21:40 → CEDOF 11-15 01:20 → C5B 11-15 01:20 → CEDOF 11-15 01:43 → CED 11-15 01:43 → C5B 11-15 02:42 → CEDOF 11-15 02:42 → C5B 11-16 16:51
PROVIDERS: Emergency Medicine; Internal Medicine Cardiovascular Disease; Nurse Practitioner
DX: T82.218A Other mechanical complication of coronary artery bypass graft, initial encounter (principal); I25.110 Atherosclerotic heart disease of native coronary artery with unstable angina pectoris; I25.2 Old myocardial infarction; I10 Essential (primary) hypertension; E78.5 Hyperlipidemia, unspecified; E11.9 Type 2 diabetes mellitus without complications; E66.9 Obesity, unspecified; Z87.891 Personal history of nicotine dependence; Z95.5 Presence of coronary angioplasty implant and graft; Z82.49 Family history of ischemic heart disease and other diseases of the circulatory system
CPT/HCPCS: 93459; C9600; 36415; 71010; 80048; 80061; 80076; 82550; 82553; 82947; 83880; 84484; 85025; 85027; 85347; 85379; 85610; 85730; 93005; 96374; 96375; 99285; C1725; C1760; C1769; C1874; G0378; J1644; J2250; J2270; J2405; J3010